=== PATIENT | female | born 1965 | race Caucasian/White ===

== ENCOUNTER 2017-03-23 14:10 | Emergency (ER) | payer BC ==
--- OUTSIDE RECORDS SUMMARY | 2017-03-23 14:18 | XMS REPORT ---
:1965 External Reference #:[id number] Author Organization [employer] Address [address] [address] Phone [phone] Care Team Providers Name Role Phone Reuben Riggs NP Primary Care Physician Unavailable Payers Type Date Identification Numbers Payment Provider Subscriber Commercial Effective: Policy Number: BS [employer]ets Javier Abdul 2011 [id number] PayID: [id number] [address] [address] [place] [address] Problems Date Description Provider Status Onset: 05/14/2014 Chronic pansinusitis Leonardo Willoughby M.D. Active Onset: 05/14/2014 Immunologic Leonardo Willoughby M.D. Active Onset: 05/14/2014 Chronic pain syndrome Leonardo Willoughby M.D. Active Onset: 02/20/2014 Taking medication Zsofia Tomy, [employer] UP OPERATOR Active Onset: 12/07/2011 Medications Nursing Home (Current) Use Leonardo Willoughby M.D. Active Encounter Onset: 12/07/2011 Collagen disease Leonardo Willoughby M.D. Active Social History Type Date Description Comments ETOH Use Denies alcohol use Smoking Patient has never smoked Allergies, Adverse Reactions, Alerts Date Description Reaction Status Severity Comments 06/07/2010 Sulfa active 06/07/2010 Ibuprofen active 12/07/2011 Doxycycline VOMIT active 08/31/2014 Cefdinir Urticaria active Severe 03/03/2015 Penicillins active 03/03/2015 Cephalosporin active Medications Medication Date Status Form Strength Qnty SIG Indications Ordering Provider Guaifenesin-Codein 03/20 Active Solution 100-10mg/ 118ml take 10 R05 Zsofia 5ML milliliters Tomy, by mouth [employer] UP OPERATOR every evening with plenty of water as needed for cough for 7 days as needed Wrist Splint/Left 02/20 Active Misc QS use on left 727.05 Zsofia Medium hand as Tomy, needed. [employer] UP OPERATOR Hydroxychloroquine 10/20 Active Tablets 200mg 180ta Take 1 M32.9 Zsofia Sulfate bs Tablet 2X Tomy, Daily [employer] UP OPERATOR Z79.899 R76.8 Prilosec 06/06/[address] 20mg 90caps 1 po qd Other Ordering Provider Tiazac Active Caps ER 24HR 240mg 30caps 1 po qd Unknown Budesonide Active Suspension 0.25mg 1monthsu bid via Unknown /2ML nebulizer Asmanex 120 Active Aerosol 220mcg 1units 1 inh bid Unknown Metered Doses /Inh Xyzal Active Tablets 5mg 1 by mouth Unknown every day Dymista Active Suspension 137-50 1 spray in Unknown mcg/Ac each t nostril Lisinopril Active Tablets 10mg 1 by mouth Unknown every day Singulair Active Tablets 10mg 1 by mouth Unknown every day Hyoscyamine Active Tablets Sub 0.125m by mouth Unknown Sulfate g qd as needed Clindamycin HCL Active Capsules 300mg 1 tabs by Unknown mouth 3 times a day Folic Acid 09/15/2016 - Hx Tablets 1mg 90tabs 1 by mouth Z7 Zsofia 03/20/2017 every day 9. Tomy, 89 [employer] UP OPERATOR 9 Methotrexate 09/15/2016 - Hx Tablets 2.5mg 48tabs take four R7 Zsofia 03/20/2017 tablets 6. Tomy, once weekly 8 [employer] UP OPERATOR Z79.899 H90.12 Cipro 03/03/2015 - Hx Tablets 500mg 6tabs 1 tab by N39.0 Zsofia 01/11/2016 mouth Tomy, twice a [employer] UP OPERATOR day for 3 days Hydroxychloroquine 08/29/2012 - Hx Tablets 200mg 1 po qd 710.9 Zsofia Sulfate 08/18/2013 Tomy, [employer] UP OPERATOR Nasonex 06/06/2012 - Hx Suspension 50mcg/A 1units 2 sprays Other 05/14/2014 ct to each Ordering nostril Provider twice daily Zantac 06/06/2012 - Hx Tablets 150mg 60tabs 1 po bid Other 02/06/2013 prn Ordering Provider Hydroxychloroquine 06/06/2012 - Hx Tablets 200mg 180tabs 1 tab po 710.9 Zsofia Sulfate 10/20/2013 bid TomyDANNYP Voltaren 06/06/2012 - Hx Gel 1% 1tubes apply to 710.9 Zsofia 08/18/2013 affected Tomy, area bid, [employer] UP OPERATOR prn Hydroxychloroquine 06/07/2010 - Hx Tablets 200mg 90tabs 1 po qd Leonardo Sulfate 02/06/2013 Stella Willoughby Clarinex - Hx Tablets 5mg 90tabs 1 po qd Unknown 05/14/2014 Singulair - Hx Tablets 10mg 28tabs 1 po qd Unknown 12/07/2011 Patanase - Hx Solution 0.6% 1units 2 sprays Unknown 02/06/2013 in each nostril bid Veramyst - Hx Suspension 27.5mcg 1Month 2 sprays Unknown 06/06/2012 /[place] each nostril daily Bactroban Nasal - Hx Ointment 2% 30gm apply to Unknown 09/15/2016 both nostrils twice a day for 14 days Vancomycin HCL - Hx Solution Rec 10gm with neb Unknown 12/07/2011 Pred Forte - Hx Suspension 1% 1 gtt Unknown 02/20/2014 both eyes qd Pataday - Hx Solution 0.2% 2.500ml 1 drop in Unknown 09/15/2016 each eye once daily Immunizations CPT Code Status Date Vaccine Lot # [id number] Given 12/01/2014 Influenza Virus Vaccine, Quadrivalent, Split, [id number] Preservative Free Vital Signs Date Vital Result Comment 03/20/2017 Weight 184.38 lb Heart Rate 108 /min BP Systolic Sitting 146 mmHg BP Diastolic Sitting 82 mmHg Body Temperature 100.7 F Pain Level 1 O2 % BldC Oximetry 97 % 11/27/2016 Weight 185.00 lb Heart Rate 87 /min BP Systolic Sitting 148 mmHg BP Diastolic Sitting 92 mmHg Body Temperature 97.4 F Pain Level 2 hands/knees O2 % BldC Oximetry 98 % 09/15/2016 Height 65 inches 5'5" Weight 190.50 lb Heart Rate 79 /min BP Systolic Sitting 159 mmHg BP Diastolic Sitting 100 mmHg Respiratory Rate 14 /min Pain Level 2 BMI (Body Mass Index) 31.7 kg/m2 07/18/2016 Height 65 inches 5'5" Weight 189.12 lb Heart Rate 84 /min BP Systolic Sitting 144 mmHg BP Diastolic Sitting 96 mmHg Respiratory Rate 14 /min Pain Level 4 BMI (Body Mass Index) 31.5 kg/m2 01/11/2016 Height 65 inches 5'5" Weight 191.00 lb Heart Rate 80 /min BP Systolic Sitting 150 mmHg BP Diastolic Sitting 90 mmHg Pain Level 2 BMI (Body Mass Index) 31.8 kg/m2 07/07/2015 Height 65 inches 5'5" Weight 185.00 lb Heart Rate 72 /min BP Systolic Sitting 124 mmHg BP Diastolic Sitting 70 mmHg Respiratory Rate 14 /min Body Temperature 98.0 F Pain Level 2 BMI (Body Mass Index) 30.8 kg/m2 03/03/2015 Height 65 inches 5'5" Weight 195.00 lb Heart Rate 72 /min BP Systolic Sitting 148 mmHg BP Diastolic Sitting 86 mmHg Respiratory Rate 14 /min Pain Level 3 BMI (Body Mass Index) 32.4 kg/m2 12/01/2014 Height 65 inches 5'5" Weight 193.50 lb Heart Rate 84 /min BP Systolic Sitting 120 mmHg BP Diastolic Sitting 70 mmHg Pain Level 2 BMI (Body Mass Index) 32.2 kg/m2 08/31/2014 Height 65 inches 5'5" Weight 195.00 lb Heart Rate 72 /min BP Systolic Sitting 134 mmHg BP Diastolic Sitting 80 mmHg Pain Level 3 BMI (Body Mass Index) 32.4 kg/m2 05/14/2014 Height 65 inches 5'5" Weight 199.00 lb Heart Rate 78 /min BP Systolic Sitting 120 mmHg BP Diastolic Sitting 80 mmHg Body Temperature 97.9 F Pain Level 5 BMI (Body Mass Index) 33.1 kg/m2 02/20/2014 Height 65 inches 5'5" Weight 196.00 lb Heart Rate 70 /min BP Systolic Sitting 142 mmHg BP Diastolic Sitting 90 mmHg Pain Level 2 BMI (Body Mass Index) 32.6 kg/m2 08/18/2013 Height 65 inches 5'5" Weight 195.00 lb Heart Rate 70 /min BP Systolic Sitting 132 mmHg BP Diastolic Sitting 78 mmHg BMI (Body Mass Index) 32.4 kg/m2 02/06/2013 Height 65 inches 5'5" Weight 190.00 lb Heart Rate 78 /min BP Systolic Sitting 132 mmHg BP Diastolic Sitting 72 mmHg BMI (Body Mass Index) 31.6 kg/m2 08/29/2012 Weight 184.00 lb Heart Rate 77 /min BP Systolic Sitting 130 mmHg BP Diastolic Sitting 80 mmHg 06/06/2012 Height 64 inches 5'4" Weight 182.00 lb Heart Rate 78 /min BP Systolic Sitting 126 mmHg BP Diastolic Sitting 74 mmHg BMI (Body Mass Index) 31.2 kg/m2 12/07/2011 Height 64 inches 5'4" Weight 178.00 lb Heart Rate 78 /min BP Systolic Sitting 130 mmHg BP Diastolic Sitting 71 mmHg BMI (Body Mass Index) 30.6 kg/m2 06/05/2011 Height 64 inches 5'4" Weight 180.00 lb Heart Rate 72 /min BP Systolic Sitting 124 mmHg BP Diastolic Sitting 73 mmHg BMI (Body Mass Index) 30.9 kg/m2 12/06/2010 Height 64 inches 5'4" Weight 182.00 lb Heart Rate 60 /min BP Systolic Sitting 110 mmHg BP Diastolic Sitting 70 mmHg BMI (Body Mass Index) 31.2 kg/m2 06/07/2010 Height 64 inches 5'4" Weight 181.00 lb Heart Rate 78 /min BP Systolic 118 mmHg BP Diastolic 70 mmHg BMI (Body Mass Index) 31.1 kg/m2 Results Test Date Test Result H/L Range Note CBC Auto Diff 01/19/2017 White Blood Count 5.8 10^3/uL 3.5-10.8 Red Blood Count 4.19 10^6/uL 4.0-5.4 Hemoglobin 12.6 g/dL 12.0-16.0 Hematocrit 37 % 35-47 Mean Corpuscular Volume 87 fL 80-97 Mean Corpuscular Hemoglobin 30 pg 27-31 Mean Corpuscular HGB Conc 35 g/dL 31-36 Red Cell Distribution Width 14 % 10.5-15 Platelet Count 382 10^3/uL 150-450 Mean Platelet Volume 7 um3 Low 7.4-10.4 Abs Neutrophils 4.0 10^3/uL 1.5-7.7 Abs Lymphocytes 1.3 10^3/uL 1.0-4.8 Abs Monocytes 0.4 10^3/uL 0-0.8 Abs Eosinophils 0 10^3/uL 0-0.6 Abs Basophils 0.1 10^3/uL 0-0.2 Abs Nucleated RBC 0 10^3/uL Granulocyte % 68.9 % 38-83 Lymphocyte % 22.6 % Low 25-47 Monocyte % 6.8 % 1-9 Eosinophil % 0.8 % 0-6 Basophil % 0.9 % 0-2 Nucleated Red Blood Cells % 0 Comp Metabolic Panel 01/19/2017 Sodium 137 mmol/L 133-145 Potassium 4.0 mmol/L 3.5-5.0 Chloride 106 mmol/L 101-111 Co2 Carbon Dioxide 28 mmol/L 22-32 Anion Gap 3 mmol/L 2-11 Glucose 80 mg/dL 70-100 Blood Urea Nitrogen 12 mg/dL 6-24 Creatinine 0.93 mg/dL 0.51-0.95 BUN/Creatinine Ratio 12.9 8-20 Calcium 8.9 mg/dL 8.6-10.3 Total Protein 6.2 g/dL Low 6.4-8.9 Albumin 4.1 g/dL 3.2-5.2 Globulin 2.1 g/dL 2-4 Albumin/Globulin Ratio 2.0 1-3 Total Bilirubin 0.50 mg/dL 0.2-1.0 Alkaline Phosphatase 52 U/L 34-104 Alt 10 U/L 7-52 Ast 12 U/L Low 13-39 Egfr Non- 63.1 >60 Egfr 81.1 >60 1 Laboratory test finding 01/19/2017 C Reactive Protein 1.02 mg/L < 5.00 2 Erythrocyte Sed Rate 15 mm/Hr 0-30 Urinalysis Profile 01/19/2017 Urine Color Yellow Urine Appearance Clear Urine Specific [place] 1.020 1.010-1.030 Urine pH 6.0 5-9 Urine Urobilinogen Negative Negative Urine Ketones Negative Negative Urine Protein Negative Negative Urine Leukocytes Negative Negative Urine Blood Negative Negative Urine Nitrite Negative Negative Urine Bilirubin Negative Negative Urine Glucose Negative Negative CBC Auto Diff 11/20/2016 White Blood Count 4.5 10^3/uL 3.5-10.8 Red Blood Count 4.53 10^6/uL 4.0-5.4 Hemoglobin 13.4 g/dL 12.0-16.0 Hematocrit 39 % 35-47 Mean Corpuscular Volume 85 fL 80-97 Mean Corpuscular Hemoglobin 30 pg 27-31 Mean Corpuscular HGB Conc 35 g/dL 31-36 Red Cell Distribution Width 13 % 10.5-15 Platelet Count 320 10^3/uL 150-450 Mean Platelet Volume 7 um3 Low 7.4-10.4 Abs Neutrophils 2.7 10^3/uL 1.5-7.7 Abs Lymphocytes 1.4 10^3/uL 1.0-4.8 Abs Monocytes 0.3 10^3/uL 0-0.8 Abs Eosinophils 0.1 10^3/uL 0-0.6 Abs Basophils 0.1 10^3/uL 0-0.2 Abs Nucleated RBC 0 10^3/uL Granulocyte % 60.1 % 38-83 Lymphocyte % 30.6 % 25-47 Monocyte % 6.7 % 1-9 Eosinophil % 1.4 % 0-6 Basophil % 1.2 % 0-2 Nucleated Red Blood Cells % 0 Comp Metabolic Panel 11/20/2016 Sodium 139 mmol/L 133-145 Potassium 4.1 mmol/L 3.5-5.0 Chloride 108 mmol/L 101-111 Co2 Carbon Dioxide 24 mmol/L 22-32 Anion Gap 7 mmol/L 2-11 Glucose 96 mg/dL 70-100 Blood Urea Nitrogen 7 mg/dL 6-24 Creatinine 0.85 mg/dL 0.51-0.95 BUN/Creatinine Ratio 8.2 8-20 Calcium 8.8 mg/dL 8.6-10.3 Total Protein 6.5 g/dL 6.4-8.9 Albumin 4.2 g/dL 3.2-5.2 Globulin 2.3 g/dL 2-4 Albumin/Globulin Ratio 1.8 1-3 Total Bilirubin 0.60 mg/dL 0.2-1.0 Alkaline Phosphatase 57 U/L 34-104 Alt 9 U/L 7-52 Ast 10 U/L Low 13-39 Egfr Non- 70.0 >60 Egfr 90.0 >60 3 Laboratory test finding 11/20/2016 C Reactive Protein 3.19 mg/L < 5.00 4 Erythrocyte Sed Rate 12 mm/Hr 0-30 5 Nuclear AB (Timothy) By [facility] 11/20/2016 Nuclear Ab (Timothy) by [facility], Positive 1:160 6 Igg IgG Timothy Titer: 1:160 Timothy Pattern: Dense Fine Speck <SEE NOTE> 7 CBC Auto Diff 09/05/2016 White Blood Count 5.4 10^3/uL 3.5-10.8 Red Blood Count 4.71 10^6/uL 4.0-5.4 Hemoglobin 13.8 g/dL 12.0-16.0 Hematocrit 42 % 35-47 Mean Corpuscular Volume 88 fL 80-97 Mean Corpuscular Hemoglobin 29 pg 27-31 Mean Corpuscular HGB Conc 33 g/dL 31-36 Red Cell Distribution Width 13 % 10.5-15 Platelet Count 294 10^3/uL 150-450 Mean Platelet Volume 8 um3 7.4-10.4 Abs Neutrophils 3.6 10^3/uL 1.5-7.7 Abs Lymphocytes 1.2 10^3/uL 1.0-4.8 Abs Monocytes 0.4 10^3/uL 0-0.8 Abs Eosinophils 0.1 10^3/uL 0-0.6 Abs Basophils 0 10^3/uL 0-0.2 Abs Nucleated RBC 0 10^3/uL Granulocyte % 66.8 % 38-83 Lymphocyte % 21.8 % Low 25-47 Monocyte % 7.9 % 1-9 Eosinophil % 2.6 % 0-6 Basophil % 0.9 % 0-2 Nucleated Red Blood Cells % 0.1 Comp Metabolic Panel 09/05/2016 Sodium 140 mmol/L 133-145 Potassium 3.9 mmol/L 3.5-5.0 Chloride 107 mmol/L 101-111 Co2 Carbon Dioxide 26 mmol/L 22-32 Anion Gap 7 mmol/L 2-11 Glucose 72 mg/dL 70-100 Blood Urea Nitrogen 7 mg/dL 6-24 Creatinine 0.80 mg/dL 0.51-0.95 BUN/Creatinine Ratio 8.8 8-20 Calcium 8.7 mg/dL 8.6-10.3 Total Protein 6.4 g/dL 6.4-8.9 Albumin 3.9 g/dL 3.2-5.2 Globulin 2.5 g/dL 2-4 Albumin/Globulin Ratio 1.6 1-3 Total Bilirubin 0.70 mg/dL 0.2-1.0 Alkaline Phosphatase 69 U/L 34-104 Alt 11 U/L 7-52 Ast 13 U/L 13-39 Egfr Non- 75.0 >60 Egfr 96.5 >60 8 Laboratory test finding 09/05/2016 Erythrocyte Sed Rate 21 mm/Hr 0-30 C Reactive Protein 3.46 mg/L < 5.00 9 Urinalysis Profile 09/05/2016 Urine Color Yellow Urine Appearance Clear Urine Specific [place] 1.014 1.010-1.030 Urine pH 5.0 5-9 Urine Urobilinogen Negative Negative Urine Ketones Negative Negative Urine Protein Negative Negative Urine Leukocytes Negative Negative Urine Blood Negative Negative Urine Nitrite Negative Negative Urine Bilirubin Negative Negative Urine Glucose Negative Negative Nuclear AB (Timothy) By [facility] 09/05/2016 Nuclear Ab (Timothy) by [facility], Positive 1:320 10 Igg IgG Timothy Titer: 1:320 Timothy Pattern: Dense Fine Speck <SEE NOTE> 11 CBC Auto Diff 07/06/2016 White Blood Count 5.3 10^3/uL 3.5-10.8 Red Blood Count 4.75 10^6/uL 4.0-5.4 Hemoglobin 13.6 g/dL 12.0-16.0 Hematocrit 40 % 35-47 Mean Corpuscular Volume 85 fL 80-97 Mean Corpuscular Hemoglobin 29 pg 27-31 Mean Corpuscular HGB Conc 34 g/dL 31-36 Red Cell Distribution Width 13 % 10.5-15 Platelet Count 317 10^3/uL 150-450 Mean Platelet Volume 8 um3 7.4-10.4 Abs Neutrophils 3.1 10^3/uL 1.5-7.7 Abs Lymphocytes 1.6 10^3/uL 1.0-4.8 Abs Monocytes 0.4 10^3/uL 0-0.8 Abs Eosinophils 0.1 10^3/uL 0-0.6 Abs Basophils 0.1 10^3/uL 0-0.2 Abs Nucleated RBC 0.04 10^3/uL Granulocyte % 58.6 % 38-83 Lymphocyte % 31.1 % 25-47 Monocyte % 6.9 % 1-9 Eosinophil % 2.1 % 0-6 Basophil % 1.3 % 0-2 Nucleated Red Blood Cells % 0.8 Comp Metabolic Panel 07/06/2016 Sodium 135 mmol/L 133-145 Chloride 104 mmol/L 101-111 Co2 Carbon Dioxide 25 mmol/L 22-32 Glucose 84 mg/dL 70-100 Blood Urea Nitrogen 13 mg/dL 6-24 Creatinine 0.94 mg/dL 0.51-0.95 BUN/Creatinine Ratio 13.8 8-20 Total Protein 6.5 g/dL 6.4-8.9 Albumin 4.2 g/dL 3.2-5.2 Globulin 2.3 g/dL 2-4 Albumin/Globulin Ratio 1.8 1-3 Total Bilirubin 0.60 mg/dL 0.2-1.0 Alkaline Phosphatase 56 U/L 34-104 Alt 11 U/L 7-52 Egfr Non- 62.3 >60 Egfr 80.1 >60 12 Potassium 4.5 mmol/L 3.5-5.0 13 Anion Gap 6 mmol/L 2-11 Ast 20 U/L 13-39 14 Calcium 9.4 mg/dL 8.6-10.3 Laboratory test finding 07/06/2016 C Reactive Protein 1.45 mg/L < 5.00 15 Aicha Igg AB Reflex 07/06/2016 SS-A/Ro Antibody <0.2 U 16 SS-B/La Antibody <0.2 U 17 Sm (Ham) IgG Antibody <0.2 U 18 U1-nRNP Antibody 0.5 U 19 Scl-70 (Scleroderma) Antibody <0.2 U 20 Judith-1 Antibody <0.2 U 21 Urinalysis Profile 07/06/2016 Urine Color Yellow Urine Appearance Clear Urine Specific [place] 1.020 1.010-1.030 Urine pH 7.0 5-9 Urine Urobilinogen Negative Negative Urine Ketones Negative Negative Urine Protein Negative Negative Urine Leukocytes Trace Negative Urine Blood Negative Negative * * Negative 22 Urine Nitrite Negative Negative Urine Bilirubin Negative Negative Urine Glucose Negative Negative Urine White Blood Cell Trace(0-5/hpf) Absent Urine Red Blood Cell Absent Absent Urine Bacteria Absent Absent Urine Squamous Epithelial Cell Present Absent Urine Culture And 07/06/2016 Urine Culture SEE RESULT BELOW 23 Sensitivities CBC Auto Diff 01/05/2016 White Blood Count 5.4 10^3/uL 3.5-10.8 Red Blood Count 4.63 10^6/uL 4.0-5.4 Hemoglobin 13.5 g/dL 12.0-16.0 Hematocrit 40 % 35-47 Mean Corpuscular Volume 86 fL 80-97 Mean Corpuscular Hemoglobin 29 pg 27-31 Mean Corpuscular HGB Conc 34 g/dL 31-36 Red Cell Distribution Width 13 % 10.5-15 Platelet Count 322 10^3/uL 150-450 Mean Platelet Volume 8 um3 7.4-10.4 Abs Neutrophils 2.9 10^3/uL 1.5-7.7 Abs Lymphocytes 1.9 10^3/uL 1.0-4.8 Abs Monocytes 0.4 10^3/uL 0-0.8 Abs Eosinophils 0.1 10^3/uL 0-0.6 Abs Basophils 0.1 10^3/uL 0-0.2 Abs Nucleated RBC 0 10^3/uL Granulocyte % 54.5 % 38-83 Lymphocyte % 35.6 % 25-47 Monocyte % 6.6 % 1-9 Eosinophil % 1.8 % 0-6 Basophil % 1.5 % 0-2 Nucleated Red Blood Cells % 0 Comp Metabolic Panel 01/05/2016 Sodium 139 mmol/L 133-145 Potassium 3.6 mmol/L 3.5-5.0 Chloride 105 mmol/L 101-111 Co2 Carbon Dioxide 27 mmol/L 22-32 Anion Gap 7 mmol/L 2-11 Glucose 85 mg/dL 70-100 Blood Urea Nitrogen 8 mg/dL 6-24 Creatinine 0.91 mg/dL 0.51-0.95 BUN/Creatinine Ratio 8.8 8-20 Calcium 9.1 mg/dL 8.6-10.3 Total Protein 6.5 g/dL 6.4-8.9 Albumin 4.0 g/dL 3.2-5.2 Globulin 2.5 g/dL 2-4 Albumin/Globulin Ratio 1.6 1-3 Total Bilirubin 0.40 mg/dL 0.2-1.0 Alkaline Phosphatase 64 U/L 34-104 Alt 12 U/L 7-52 Ast 16 U/L 13-39 Egfr Non- 64.9 >60 Egfr 83.5 >60 24 Laboratory test finding 01/05/2016 C Reactive Protein 1.99 mg/L < 5.00 25 Erythrocyte Sed Rate 11 mm/Hr 0-30 Angiotensin Converting Enzyme 11 U/L 8 - 53 26 Urinalysis Profile 01/05/2016 Urine Color Yellow Urine Appearance Clear Urine Specific [place] 1.014 1.010-1.030 Urine pH 6.0 5-9 Urine Urobilinogen Negative Negative Urine Ketones Negative Negative Urine Protein Negative Negative Urine Leukocytes Negative Negative Urine Blood 2+ Negative Urine Nitrite Negative Negative Urine Bilirubin Negative Negative Urine Glucose Negative Negative Urine White Blood Cell Trace(0-5/hpf) Absent Urine Red Blood Cell 1+(3-5/hpf) Absent Urine Bacteria Absent Absent Urine Squamous Epithelial Cell Present Absent CBC Auto Diff 07/06/2015 White Blood Count 4.2 10^3/uL 3.5-10.8 Red Blood Count 4.68 10^6/uL 4.0-5.4 Hemoglobin 13.2 g/dL 12.0-16.0 Hematocrit 41 % 35-47 Mean Corpuscular Volume 87 fL 80-97 Mean Corpuscular Hemoglobin 28 pg 27-31 Mean Corpuscular HGB Conc 32 g/dL 31-36 Red Cell Distribution Width 13 % 10.5-15 Platelet Count 299 10^3/uL 150-450 Mean Platelet Volume 8 um3 7.4-10.4 Abs Neutrophils 2.3 10^3/uL 1.5-7.7 Abs Lymphocytes 1.4 10^3/uL 1.0-4.8 Abs Monocytes 0.4 10^3/uL 0-0.8 Abs Eosinophils 0 10^3/uL 0-0.6 Abs Basophils 0.1 10^3/uL 0-0.2 Abs Nucleated RBC 0.01 10^3/uL Granulocyte % 55.9 % 38-83 Lymphocyte % 32.4 % 25-47 Monocyte % 9.4 % High 1-9 Eosinophil % 0.5 % 0-6 Basophil % 1.8 % 0-2 Nucleated Red Blood Cells % 0.2 Comp Metabolic Panel 07/06/2015 Sodium 136 mmol/L 133-145 Chloride 105 mmol/L 101-111 Co2 Carbon Dioxide 25 mmol/L 22-32 Glucose 89 mg/dL 70-100 Blood Urea Nitrogen 9 mg/dL 6-24 Creatinine 0.80 mg/dL 0.51-0.95 BUN/Creatinine Ratio 11.3 8-20 Calcium 8.9 mg/dL 8.6-10.3 Total Protein 6.7 g/dL 6.4-8.9 Albumin 4.3 g/dL 3.2-5.2 Globulin 2.4 g/dL 2-4 Albumin/Globulin Ratio 1.8 1-3 Total Bilirubin 0.50 mg/dL 0.2-1.0 Alkaline Phosphatase 56 U/L 34-104 Alt 12 U/L 7-52 Egfr Non- 75.3 >60 Egfr 96.9 >60 27 Potassium 4.4 mmol/L 3.5-5.0 Anion Gap 6 mmol/L 2-11 Ast 17 U/L 13-39 Laboratory test finding 07/06/2015 C Reactive Protein 3.40 mg/L < 5.00 28 Erythrocyte Sed Rate 13 mm/Hr 0-30 Urinalysis Profile 07/06/2015 Urine Color Yellow Urine Appearance Clear Urine Specific [place] 1.015 1.010-1.030 Urine pH 7.0 5-9 Urine Urobilinogen Negative Negative Urine Ketones Negative Negative Urine Protein Negative Negative Urine Leukocytes Negative Negative Urine Blood Negative Negative Urine Nitrite Negative Negative Urine Bilirubin Negative Negative Urine Glucose Negative Negative Laboratory test finding 07/06/2015 Anti Nuclear Antibody 0.5 U 29 Laboratory test finding 02/25/2015 Timothy (Antinuclear Negative Negative Antibodies) CBC Auto Diff 02/25/2015 White Blood Count 5.8 10^3/uL 3.5-10.8 Red Blood Count 4.62 10^6/uL 4.0-5.4 Hemoglobin 13.1 g/dL 12.0-16.0 Hematocrit 40 % 35-47 Mean Corpuscular Volume 87 fL 80-97 Mean Corpuscular Hemoglobin 28 pg 27-31 Mean Corpuscular HGB Conc 33 g/dL 31-36 Red Cell Distribution Width 13 % 10.5-15 Platelet Count 351 10^3/uL 150-450 Mean Platelet Volume 8 um3 7.4-10.4 Abs Neutrophils 3.6 10^3/uL 1.5-7.7 Abs Lymphocytes 1.7 10^3/uL 1.0-4.8 Abs Monocytes 0.4 10^3/uL 0-0.8 Abs Eosinophils 0.1 10^3/uL 0-0.6 Abs Basophils 0 10^3/uL 0-0.2 Abs Nucleated RBC 0.01 10^3/uL Granulocyte % 62.2 % 38-83 Lymphocyte % 28.5 % 25-47 Monocyte % 7.1 % 1-9 Eosinophil % 1.4 % 0-6 Basophil % 0.8 % 0-2 Nucleated Red Blood Cells % 0.1 Comp Metabolic Panel 02/25/2015 Sodium 138 mmol/L 133-145 Potassium 3.9 mmol/L 3.5-5.0 Chloride 105 mmol/L 101-111 Co2 Carbon Dioxide 27 mmol/L 22-32 Anion Gap 6 mmol/L 2-11 Glucose 93 mg/dL 70-100 Blood Urea Nitrogen 11 mg/dL 6-24 Creatinine 0.83 mg/dL 0.51-0.95 BUN/Creatinine Ratio 13.3 8-20 Calcium 8.9 mg/dL 8.6-10.3 Total Protein 6.6 g/dL 6.4-8.9 Albumin 4.5 g/dL 3.2-5.2 Globulin 2.1 g/dL 2-4 Albumin/Globulin Ratio 2.1 1-3 Total Bilirubin 0.40 mg/dL 0.2-1.0 Alkaline Phosphatase 62 U/L 34-104 Alt 13 U/L 7-52 Ast 17 U/L 13-39 Egfr Non- 72.2 >60 Egfr 92.8 >60 30 Laboratory test finding 02/25/2015 C Reactive Protein 2.45 mg/L < 5.00 31 Erythrocyte Sed Rate 12 mm/Hr 0-30 Urinalysis Profile 02/25/2015 Urine Color Yellow Urine Appearance Cloudy Urine Specific [place] 1.016 1.010-1.030 Urine pH 7.0 5-9 Urine Urobilinogen Negative Negative Urine Ketones Negative Negative Urine Protein Negative Negative Urine Leukocytes Trace Negative Urine Blood Negative Negative * * Negative 32 Urine Nitrite Negative Negative Urine Bilirubin Negative Negative Urine Glucose Negative Negative Urine White Blood Cell Absent Absent Urine Red Blood Cell 1+(3-5/hpf) Absent Urine Bacteria Absent Absent Urine Squamous Epithelial Cell Present Absent Laboratory test 02/25/2015 Urine Culture And SEE RESULT BELOW 33 finding Sensitivities CBC Auto Diff 11/24/2014 White Blood Count 5.6 10^3/uL 4.8-10.8 Red Blood Count 4.46 10^6/uL 4.0-5.4 Hemoglobin 13.0 g/dL 12.0-16.0 Hematocrit 39 % 35-47 Mean Corpuscular Volume 87 fL 80-97 Mean Corpuscular Hemoglobin 29 pg 27-31 Mean Corpuscular HGB Conc 33 g/dL 31-36 Red Cell Distribution Width 13 % 10.5-15 Platelet Count 353 10^3/uL 150-450 Mean Platelet Volume 7 um3 Low 7.4-10.4 Abs Neutrophils 3.4 10^3/uL 1.5-7.7 Abs Lymphocytes 1.6 10^3/uL 1.0-4.8 Abs Monocytes 0.3 10^3/uL 0-0.8 Abs Eosinophils 0.1 10^3/uL 0-0.6 Abs Basophils 0.1 10^3/uL 0-0.2 Abs Nucleated RBC 0.04 10^3/uL Granulocyte % 61.1 % 38-83 Lymphocyte % 29.2 % 25-47 Monocyte % 5.8 % 1-9 Eosinophil % 2.0 % 0-6 Basophil % 1.9 % 0-2 Nucleated Red Blood Cells % 0.8 Comp Metabolic Panel 11/24/2014 Sodium 140 mmol/L 133-145 Potassium 4.0 mmol/L 3.5-5.0 Chloride 106 mmol/L 101-111 Co2 Carbon Dioxide 29 mmol/L 22-32 Anion Gap 5 mmol/L 2-11 Glucose 77 mg/dL 70-100 Blood Urea Nitrogen 10 mg/dL 6-24 Creatinine 0.81 mg/dL 0.51-0.95 BUN/Creatinine Ratio 12.3 8-20 Calcium 9.0 mg/dL 8.6-10.3 Total Protein 6.0 g/dL Low 6.4-8.9 Albumin 4.0 g/dL 3.2-5.2 Globulin 2.0 g/dL 2-4 Albumin/Globulin Ratio 2.0 1-3 Total Bilirubin 0.40 mg/dL 0.2-1.0 Alkaline Phosphatase 61 U/L 34-104 Alt 10 U/L 7-52 Ast 11 U/L Low 13-39 Egfr Non- 74.5 >60 Egfr 95.9 >60 34 Laboratory test finding 11/24/2014 C Reactive Protein 4.44 mg/L < 5.00 35 Erythrocyte Sed Rate 13 mm/Hr 0-30 Timothy (Antinuclear Antibodies) Negative Negative CBC Auto Diff 08/28/2014 White Blood Count 5.2 10^3/uL 4.8-10.8 Red Blood Count 4.63 10^6/uL 4.0-5.4 Hemoglobin 13.5 g/dL 12.0-16.0 Hematocrit 40 % 35-47 Mean Corpuscular Volume 86 fL 80-97 Mean Corpuscular Hemoglobin 29 pg 27-31 Mean Corpuscular HGB Conc 34 g/dL 31-36 Red Cell Distribution Width 13 % 10.5-15 Platelet Count 300 10^3/uL 150-450 Mean Platelet Volume 7 um3 Low 7.4-10.4 Abs Neutrophils 3.6 10^3/uL 1.5-7.7 Abs Lymphocytes 1.1 10^3/uL 1.0-4.8 Abs Monocytes 0.4 10^3/uL 0-0.8 Abs Eosinophils 0.1 10^3/uL 0-0.6 Abs Basophils 0.1 10^3/uL 0-0.2 Abs Nucleated RBC 0.01 10^3/uL Granulocyte % 69.2 % 38-83 Lymphocyte % 20.3 % Low 25-47 Monocyte % 7.0 % 1-9 Eosinophil % 2.5 % 0-6 Basophil % 1.0 % 0-2 Nucleated Red Blood Cells % 0.1 Comp Metabolic Panel 08/28/2014 Sodium 137 mmol/L 133-145 Potassium 4.0 mmol/L 3.5-5.0 Chloride 107 mmol/L 101-111 Co2 Carbon Dioxide 24 mmol/L 22-32 Anion Gap 6 mmol/L 2-11 Glucose 84 mg/dL 70-100 Blood Urea Nitrogen 8 mg/dL 6-24 Creatinine 0.71 mg/dL 0.51-0.95 BUN/Creatinine Ratio 11.3 8-20 Calcium 9.0 mg/dL 8.6-10.3 Total Protein 6.3 g/dL Low 6.4-8.9 Albumin 4.1 g/dL 3.2-5.2 Globulin 2.2 g/dL 2-4 Albumin/Globulin Ratio 1.9 1-3 Total Bilirubin 0.50 mg/dL 0.2-1.0 Alkaline Phosphatase 71 U/L 34-104 Alt 11 U/L 7-52 Ast 12 U/L Low 13-39 Egfr Non- 86.8 >60 Egfr 111.6 >60 36 Laboratory test finding 08/28/2014 Erythrocyte Sed Rate 18 mm/Hr 0-30 C Reactive Protein 6.35 mg/L High < 5.00 37 Timothy (Anti-Nuclear AB) Screen Negative Negative Comp Metabolic Panel 05/13/2014 Sodium 136 mmol/L 133-145 Potassium 4.4 mmol/L 3.5-5.0 Chloride 103 mmol/L 101-111 Co2 Carbon Dioxide 28 mmol/L 22-32 Anion Gap 5 mmol/L 2-11 Glucose 87 mg/dL 70-100 Blood Urea Nitrogen 18 mg/dL 6-24 Creatinine 0.89 mg/dL 0.51-0.95 BUN/Creatinine Ratio 20.2 High 8-20 Calcium 8.8 mg/dL 8.6-10.3 Total Protein 6.2 g/dL Low 6.4-8.9 Albumin 4.1 g/dL 3.2-5.2 Globulin 2.1 g/dL 2-4 Albumin/Globulin Ratio 2.0 1-3 Total Bilirubin 0.60 mg/dL 0.2-1.0 Alkaline Phosphatase 61 U/L 34-104 Alt 17 U/L 7-52 Ast 11 U/L Low 13-39 Egfr Non- 66.9 >60 Egfr 86.0 >60 38 Laboratory test finding 05/13/2014 C Reactive Protein 4.64 mg/L < 5.00 39 CBC Auto Diff 05/13/2014 White Blood Count 9.0 10^3/uL 4.8-10.8 Red Blood Count 4.47 10^6/uL 4.0-5.4 Hemoglobin 13.6 g/dL 12.0-16.0 Hematocrit 39 % 35-47 Mean Corpuscular Volume 88 fL 80-97 Mean Corpuscular Hemoglobin 30 pg 27-31 Mean Corpuscular HGB Conc 35 g/dL 31-36 Red Cell Distribution Width 14 % 10.5-15 Platelet Count 338 10^3/uL 150-450 Mean Platelet Volume 7 um3 Low 7.4-10.4 Abs Neutrophils 5.6 10^3/uL 1.5-7.7 Abs Lymphocytes 2.6 10^3/uL 1.0-4.8 Abs Monocytes 0.6 10^3/uL 0-0.8 Abs Eosinophils 0.1 10^3/uL 0-0.6 Abs Basophils 0.1 10^3/uL 0-0.2 Abs Nucleated RBC 0.01 10^3/uL Granulocyte % 62.2 % 38-83 Lymphocyte % 28.7 % 25-47 Monocyte % 6.8 % 1-9 Eosinophil % 1.6 % 0-6 Basophil % 0.7 % 0-2 Nucleated Red Blood Cells % 0.2 Laboratory test finding 05/13/2014 Erythrocyte Sed Rate 10 mm/Hr 0-30 Timothy (Anti-Nuclear AB) Screen Negative Negative CBC Auto Diff 02/14/2014 White Blood Count 4.3 10^3/uL Low 4.8-10.8 Red Blood Count 4.58 10^6/uL 4.0-5.4 Hemoglobin 13.5 g/dL 12.0-16.0 Hematocrit 40 % 35-47 Mean Corpuscular Volume 87 fL 80-97 Mean Corpuscular Hemoglobin 29 pg 27-31 Mean Corpuscular HGB Conc 34 g/dL 31-36 Red Cell Distribution Width 13 % 10.5-15 Platelet Count 303 10^3/uL 150-450 Mean Platelet Volume 7 um3 Low 7.4-10.4 Abs Neutrophils 2.7 10^3/uL 1.5-7.7 Abs Lymphocytes 1.1 10^3/uL 1.0-4.8 Abs Monocytes 0.3 10^3/uL 0-0.8 Abs Eosinophils 0.1 10^3/uL 0-0.6 Abs Basophils 0.1 10^3/uL 0-0.2 Abs Nucleated RBC 0 10^3/uL Granulocyte % 61.9 % 38-83 Lymphocyte % 25.8 % 25-47 Monocyte % 7.9 % 1-9 Eosinophil % 3.0 % 0-6 Basophil % 1.4 % 0-2 Nucleated Red Blood Cells % 0 Comp Metabolic Panel 02/14/2014 Sodium 140 mmol/L 133-145 Potassium 3.9 mmol/L 3.5-5.0 Chloride 110 mmol/L 101-111 Co2 Carbon Dioxide 26 mmol/L 22-32 Anion Gap 4 mmol/L 2-11 Glucose 93 mg/dL 70-100 Blood Urea Nitrogen 10 mg/dL 6-24 Creatinine 0.74 mg/dL 0.51-0.95 BUN/Creatinine Ratio 13.5 8-20 Calcium 8.7 mg/dL 8.6-10.3 Total Protein 6.4 g/dL 6.4-8.9 Albumin 3.9 g/dL 3.2-5.2 Globulin 2.5 g/dL 2-4 Albumin/Globulin Ratio 1.6 1-3 Total Bilirubin 0.50 mg/dL 0.2-1.0 Alkaline Phosphatase 59 U/L 34-104 Alt 9 U/L 7-52 Ast 11 U/L Low 13-39 Egfr Non- 82.7 >60 Egfr 106.4 >60 40 Laboratory test finding 02/14/2014 Timothy (Anti-Nuclear AB) Negative Negative Screen Erythrocyte Sed Rate 15 mm/Hr 0-30 C Reactive Protein 1.72 mg/L < 5.00 41 CBC With Manual Diff 11/07/2013 White Blood Count 5.6 10^3/uL 4.8-10.8 Red Blood Count 4.66 10^6/uL 4.0-5.4 Hemoglobin 13.9 g/dL 12.0-16.0 Hematocrit 40 % 35-47 Mean Corpuscular Volume 85 fL 80-97 Mean Corpuscular Hemoglobin 30 pg 27-31 Mean Corpuscular HGB Conc 35 g/dL 31-36 Red Cell Distribution Width 13 % 10.5-15 Platelet Count 330 10^3/uL 150-450 Mean Platelet Volume 7 um3 Low 7.4-10.4 Abs Neutrophils 3.4 10^3/uL 1.5-7.7 Abs Lymphocytes 1.7 10^3/uL 1.0-4.8 Abs Monocytes 0.5 10^3/uL 0-0.8 Abs Eosinophils 0.1 10^3/uL 0-0.6 Abs Basophils 0.1 10^3/uL 0-0.2 Abs Nucleated RBC 0 10^3/uL Neutrophil % 53 % 38-83 Lymphocytes % 30 % 25-47 Monocytes % 14 % High 0-13 Eosinophils % 2 % 0-6 Reactive Lymph % 1 % 0-6 RBC Morphology Normal Normal Comp Metabolic Panel 11/07/2013 Sodium 139 mmol/L 133-145 Potassium 3.7 mmol/L 3.7-5.6 Chloride 106 mmol/L 101-111 Co2 Carbon Dioxide 28 mmol/L 22-32 Anion Gap 5 mmol/L 2-11 Glucose 83 mg/dL 70-100 Blood Urea Nitrogen 12 mg/dL 6-24 Creatinine 0.80 mg/dL 0.51-0.95 BUN/Creatinine Ratio 15.0 8-20 Calcium 9.1 mg/dL 8.6-10.3 Total Protein 6.8 g/dL 6.4-8.9 Albumin 4.4 g/dL 3.2-5.2 Globulin 2.4 g/dL 2-4 Albumin/Globulin Ratio 1.8 1-3 Total Bilirubin 0.50 mg/dL 0.2-1.0 Alkaline Phosphatase 63 U/L 34-104 Alt 10 U/L 7-52 Ast 14 U/L 13-39 Egfr Non- 75.9 >60 Egfr 97.6 >60 42 Laboratory test finding 11/07/2013 C Reactive Protein 1.99 mg/L < 5.00 43 Erythrocyte Sed Rate 17 mm/Hr 0-30 Timothy (Anti-Nuclear AB) Screen Negative Negative CBC With Manual Diff 08/14/2013 White Blood Count 6.0 10^3/uL 4.8-10.8 Red Blood Count 4.49 10^6/uL 4.0-5.4 Hemoglobin 13.3 g/dL 12.0-16.0 Hematocrit 39 % 35-47 Mean Corpuscular Volume 86 fL 80-97 Mean Corpuscular Hemoglobin 30 pg 27-31 Mean Corpuscular HGB Conc 35 g/dL 31-36 Red Cell Distribution Width 13 % 10.5-15 Platelet Count 313 10^3/uL 150-450 Mean Platelet Volume 7 um3 Low 7.4-10.4 Abs Neutrophils 3.7 10^3/uL 1.5-7.7 Abs Lymphocytes 1.6 10^3/uL 1.0-4.8 Abs Monocytes 0.5 10^3/uL 0-0.8 Abs Eosinophils 0.1 10^3/uL 0-0.6 Abs Basophils 0.1 10^3/uL 0-0.2 Abs Nucleated RBC 0.01 10^3/uL Neutrophil % 64 % 38-83 Lymphocytes % 28 % 25-47 Monocytes % 3 % 0-13 Eosinophils % 2 % 0-6 Basophil % 2 % 0-2 Reactive Lymph % 1 % 0-6 RBC Morphology Normal Normal Laboratory test finding 08/14/2013 C Reactive Protein 2.72 mg/L < 5.00 44 Erythrocyte Sed Rate 15 mm/Hr 0-30 Comp Metabolic Panel 08/14/2013 Sodium 137 mmol/L 133-145 Potassium 4.0 mmol/L 3.7-5.6 Chloride 106 mmol/L 101-111 Co2 Carbon Dioxide 25 mmol/L 22-32 Anion Gap 6 mmol/L 2-11 Glucose 93 mg/dL 70-100 Blood Urea Nitrogen 9 mg/dL 6-24 Creatinine 0.96 mg/dL High 0.51-0.95 BUN/Creatinine Ratio 9.4 8-20 Calcium 9.0 mg/dL 8.6-10.3 Total Protein 6.8 g/dL 6.4-8.9 Albumin 4.2 g/dL 3.2-5.2 Globulin 2.6 g/dL 2-4 Albumin/Globulin Ratio 1.6 1-3 Total Bilirubin 0.50 mg/dL 0.2-1.0 Alkaline Phosphatase 68 U/L 34-104 Alt 14 U/L 7-52 Ast 14 U/L 13-39 Egfr Non- 61.5 >60 Egfr 79.1 >60 45 Laboratory test 08/14/2013 Timothy (Anti-Nuclear AB) Reflexed to FA Negative finding Screen Timothy Hep-2 08/14/2013 Timothy Pattern Homogeneous Negative Timothy Titer 1:640 <1:80 Timothy Reviewed By MD Micheal Marina <SEE NOTE> 46 CBC With Manual Diff 02/03/2013 White Blood Count 4.5 10^3/uL Low 4.8- 10.8 Red Blood Count 4.64 10^6/uL 4.0-5.4 Hemoglobin 13.5 g/dL 12.0-16.0 Hematocrit 40 % 35-47 Mean Corpuscular Volume 86 fL 80-97 Mean Corpuscular Hemoglobin 29 pg 27-31 Mean Corpuscular HGB Conc 34 g/dL 31-36 Red Cell Distribution Width 13 % 10.5-15 Platelet Count 310 10^3/uL 150-450 Mean Platelet Volume 8 um3 7.4-10.4 Abs Neutrophils 2.5 10^3/uL 1.5-7.7 Abs Lymphocytes 1.3 10^3/uL 1.0-4.8 Abs Monocytes 0.4 10^3/uL 0-0.8 Abs Eosinophils 0.2 10^3/uL 0-0.6 Abs Basophils 0 10^3/uL 0-0.2 Abs Nucleated RBC 0 10^3/uL Neutrophil % 52 % 38-83 Lymphocytes % 37 % 25-47 Monocytes % 7 % 0-13 Eosinophils % 4 % 0-6 RBC Morphology Normal Normal Laboratory test 02/03/2013 C Reactive Protein < 0.5 mg/dL Less than 0.5 finding Comp Metabolic Panel 02/03/2013 Sodium 137 mmol/L 133-145 Potassium 4.5 mmol/L 3.5-5.0 Chloride 103 mmol/L 101-111 Co2 Carbon Dioxide 28.0 mmol/L 22-32 Anion Gap 6.0 mmol/L 2-11 Glucose 99 mg/dL 70-100 Blood Urea Nitrogen 8 mg/dL 6-24 Creatinine 0.80 mg/dL 0.50-1.40 BUN/Creatinine Ratio 10.0 8-20 Calcium 9.7 mg/dL 8.1-9.9 Total Protein 6.2 g/dL 6.2-8.1 Albumin 3.9 g/dL 3.6-5.4 Globulin 2.3 g/dL 2-4 Albumin/Globulin Ratio 1.7 1-3 Total Bilirubin 0.6 mg/dL 0.4-1.5 Alkaline Phosphatase 70 U/L 30-110 Alt 15 U/L 14-54 Ast 21 U/L 12-42 Egfr Non- 76.2 >60 Egfr 98.0 >60 47 Laboratory test finding 02/03/2013 Erythrocyte Sed Rate 11 mm/Hr 0-14 Timothy (Anti-Nuclear AB) Screen Negative Negative CBC With Manual Diff 08/23/2012 White Blood Count 5.0 10^3/uL 4.8-10.8 Red Blood Count 4.66 10^6/uL 4.0-5.4 Hemoglobin 13.1 g/dL 12.0-16.0 Hematocrit 40 % 35-47 Mean Corpuscular Volume 86 fL 80-97 Mean Corpuscular Hemoglobin 28 pg 27-31 Mean Corpuscular HGB Conc 33 g/dL 31-36 Red Cell Distribution Width 13 % 10.5-15 Platelet Count 350 10^3/uL 150-450 Mean Platelet Volume 8 um3 7.4-10.4 Abs Neutrophils 2.7 10^3/uL 1.5-7.7 Abs Lymphocytes 1.7 10^3/uL 1.0-4.8 Abs Monocytes 0.4 10^3/uL 0-0.8 Abs Eosinophils 0.1 10^3/uL 0-0.6 Abs Basophils 0.1 10^3/uL 0-0.2 Abs Nucleated RBC 0 10^3/uL Neutrophil % 51 % 38-83 Lymphocytes % 41 % 25-47 Monocytes % 4 % 0-13 Eosinophils % 4 % 0-6 RBC Morphology Normal Normal Comp Metabolic Panel 08/23/2012 Sodium 135 mmol/L 133-145 Potassium 4.0 mmol/L 3.5-5.0 Chloride 103 mmol/L 101-111 Co2 Carbon Dioxide 24.0 mmol/L 22-32 Anion Gap 8.0 mmol/L 2-11 Glucose 91 mg/dL 70-100 Blood Urea Nitrogen 9 mg/dL 6-24 Creatinine 0.80 mg/dL 0.50-1.40 BUN/Creatinine Ratio 11.3 8-20 Calcium 8.9 mg/dL 8.1-9.9 Total Protein 6.4 g/dL 6.2-8.1 Albumin 3.9 g/dL 3.6-5.4 Globulin 2.5 g/dL 2-4 Albumin/Globulin Ratio 1.6 1-3 Total Bilirubin 0.8 mg/dL 0.4-1.5 Alkaline Phosphatase 73 U/L 30-110 Alt 15 U/L 14-54 Ast 17 U/L 12-42 Egfr Non- 76.2 >60 Egfr 98.0 >60 48 Laboratory test 08/23/2012 C Reactive Protein < 0.5 mg/dL Less than 0.5 finding Erythrocyte Sed Rate 10 mm/Hr 0-14 Aicha Screen Negative Negative 49 Timothy (Anti-Nuclear AB) Screen Negative Negative Laboratory test finding 07/31/2012 C Reactive Protein 0.5 mg/dL Less than 0.5 Erythrocyte Sed Rate 10 mm/Hr 0-14 Comp Metabolic Panel 07/31/2012 Sodium 141 mmol/L 133-145 Potassium 4.0 mmol/L 3.5-5.0 Chloride 112 mmol/L High 101-111 Co2 Carbon Dioxide 25.0 mmol/L 22-32 Anion Gap 4.0 mmol/L 2-11 Glucose 93 mg/dL 70-100 Blood Urea Nitrogen 9 mg/dL 6-24 Creatinine 0.80 mg/dL 0.50-1.40 BUN/Creatinine Ratio 11.3 8-20 Calcium 9.0 mg/dL 8.1-9.9 Total Protein 6.2 g/dL 6.2-8.1 Albumin 3.5 g/dL Low 3.6-5.4 Globulin 2.7 g/dL 2-4 Albumin/Globulin Ratio 1.3 1-3 Total Bilirubin 0.7 mg/dL 0.4-1.5 Alkaline Phosphatase 54 U/L 30-110 Alt 14 U/L 14-54 Ast 16 U/L 12-42 Egfr Non- 76.2 >60 Egfr 98.0 >60 50 CBC With Manual Diff 07/31/2012 White Blood Count 5.7 10^3/uL 4.8-10.8 Red Blood Count 4.59 10^6/uL 4.0-5.4 Hemoglobin 13.4 g/dL 12.0-16.0 Hematocrit 40 % 35-47 Mean Corpuscular Volume 88 fL 80-97 Mean Corpuscular Hemoglobin 29 pg 27-31 Mean Corpuscular HGB Conc 33 g/dL 31-36 Red Cell Distribution Width 13 % 10.5-15 Platelet Count 303 10^3/uL 150-450 Mean Platelet Volume 7 um3 Low 7.4-10.4 Abs Neutrophils 3.6 10^3/uL 1.5-7.7 Abs Lymphocytes 1.3 10^3/uL 1.0-4.8 Abs Monocytes 0.6 10^3/uL 0-0.8 Abs Eosinophils 0.1 10^3/uL 0-0.6 Abs Basophils 0.1 10^3/uL 0-0.2 Abs Nucleated RBC 0 10^3/uL Neutrophil % 63 % 38-83 Band % 2 % 0-8 Lymphocytes % 24 % Low 25-47 Monocytes % 6 % 0-13 Eosinophils % 2 % 0-6 Basophil % 2 % 0-2 Reactive Lymph % 1 % 0-6 RBC Morphology Normal Normal Celiac Panel 06/06/2012 Immunoglobulin A 86 mg/dL 61 - 356 Tissue Transglutaminase IgA Ab <1.2 U/mL 51 Celiac Interpretation See Comment 52 Urinalysis 06/06/2012 Urine Color Yellow Urine Appearance Turbid Urine Specific [place] 1.020 1.010-1.030 Urine Esterase Negative Negative Urine Nitrate Negative Negative Urine Urobilinogen Negative E.U./dL Negative Urine Protein Negative mg/dL Negative Urine pH 8.0 5-9 Urine Blood Negative Negative Urine Ketones Negative mg/dL Negative Urine Bilirubin Negative Negative Urine Glucose Negative mg/dL Negative CBC With Manual Diff 05/29/2012 White Blood Count 5.5 10^3/uL 4.8-10.8 Red Blood Count 4.59 10^6/uL 4.0-5.4 Hemoglobin 13.5 g/dL 12.0-16.0 Hematocrit 41 % 35-47 Mean Corpuscular Volume 88 fL 80-97 Mean Corpuscular Hemoglobin 30 pg 27-31 Mean Corpuscular HGB Conc 33 g/dL 31-36 Red Cell Distribution Width 13 % 10.5-15 Platelet Count 305 10^3/uL 150-450 Mean Platelet Volume 8 um3 7.4-10.4 Abs Neutrophils 3.4 10^3/uL 1.5-7.7 Abs Lymphocytes 1.5 10^3/uL 1.0-4.8 Abs Monocytes 0.4 10^3/uL 0-0.8 Abs Eosinophils 0.1 10^3/uL 0-0.6 Abs Basophils 0.1 10^3/uL 0-0.2 Abs Nucleated RBC 0 10^3/uL Neutrophil % 58 % 38-83 Lymphocytes % 37 % 25-47 Monocytes % 4 % 0-13 Reactive Lymph % 1 % 0-6 RBC Morphology Normal Normal Laboratory test finding 05/29/2012 Erythrocyte Sed Rate 10 mm/Hr 0-14 C Reactive Protein < 0.5 mg/dL Less than 0.5 Timothy (Anti-Nuclear AB) Screen Reflexed to FA Negative 53 Aicha Screen Negative Negative 54 Timothy Hep-2 05/29/2012 Timothy Pattern Homogeneous Negative Timothy Titer 1:1280 <1:80 Timothy Reviewed By MD Micheal Marina <SEE NOTE> 55 Laboratory test finding 11/30/2011 Erythrocyte Sed Rate 12 MM/HR 0-14 C Reactive Protein 0.7 mg/dL High Less Than 0.5 Anti Nuclear Antibody Screen Negative Negative 56 CBC With Manual Diff 11/30/2011 White Blood Count 4.7 10^3/uL Low 4.8- 10.8 Red Blood Count 4.13 10^6/uL 4.0-5.4 Hemoglobin 12.9 g/dL 12.0-16.0 Hematocrit 36 % 35-47 Mean Corpuscular Volume 88 fL 80-97 Mean Corpuscular Hemoglobin 31 pg 27-31 Mean Corpuscular HGB Conc 35 g/dL 31-36 Red Cell Distribution Width 13 % 10.5-15 Platelet Count 311 10^3/uL 150-450 Mean Platelet Volume 7 um3 Low 7.4-10.4 Abs Neutrophils 2.7 10^3/uL 1.5-7.7 Abs Lymphocytes 1.5 10^3/uL 1.0-4.8 Abs Monocytes 0.3 10^3/uL 0-0.8 Abs Eosinophils 0.1 10^3/uL 0-0.6 Abs Basophils 0 10^3/uL 0-0.2 Abs Nucleated RBC 0 10^3/uL Neutrophil % 61.0 % 38-83 Band % 1.0 % 0-8 Lymphocytes % 22.0 % Low 25-47 Monocytes % 7.0 % 0-13 Eosinophils % 2.0 % 0-6 Basophil % 0 % 0-2 Reactive Lymph % 7.0 % High 0-6 Metamyelocytes % 0 % 0-2 Myelocytes % 0 % 0-1 Promyelocytes % 0 % Blast % 0 % RBC Morphology Normal Normal Ssa/SSB Abs Igg 11/30/2011 SS-A/Ro Antibody <0.2 U 57 SS-B/La Antibody 0.4 U 58 Neutrophil Cytoplasmic AB 11/30/2011 C-Anca Negative Negative P Anca Negative Negative Anca Reviewed By MD Stevenson Cerna <SEE NOTE> 59 Neutrophil Cytoplasmic AB 05/30/2011 C-Anca NEGATIVE P-Anca Final RPT NEGATIVE Nca Rev By MD MICHEAL MARINA <SEE NOTE> Negative 60 Timothy (Antinuclear 05/30/2011 Antinuclear AB NEGATIVE Negative Antibodies) Dna Autoab Single-Stranded 05/30/2011 SS-A/Ro Autoantibodies <0.2 U ( ) 61 SS-B/La Autoantibodies 0.3 U () 62 Laboratory test finding 05/30/2011 Erythrocyte Sed Rate 15 MM/HR 0-15 CBC With Manual Diff 05/30/2011 White Blood Count 4.5 CUMM Low 4.8-10.8 Red Cell Count 4.21 CUMM 4.2-5.4 Hemoglobin 13.0 g/dL 12.0-16.0 Hematocrit 37 % 35-47 Mean Corpuscular Volume 87 um3 79-97 Mean Corpuscular Hemoglob 31 pg 27-31 Mean Corpuscular HGB Cone 36 g/dL 32-36 Redcell Distribution WDTH 13 % 10.5-15 Platelet Count 332 CUMM 150-450 Mean Platelet Volume 7.8 um3 7.4-10.4 Polysegmented Neutrophil 71 % 38-83 Lymphocyte 25 % 25-47 Monocyte 3 % 0-13 Atypical Lymph 1 % 0-6 Absolute Neutrophil Count 3.10 RBC Morphology NORMAL Laboratory test 05/30/2011 C Reactive Protein < 0.5 mg/dL Less Than 0.5 finding 1 Because ethnic data is not always readily available, this report includes an eGFR for both -Americans and non- Americans. The National Kidney Disease Education Program (NKDEP) does not endorse the use of the MDRD equation for patients that are not between the ages of 18 and 70, are , have extremes of body size, muscle mass, or nutritional status, or are non- or non-. According to the National Kidney Foundation, irrespective of diagnosis, the stage of the disease is based on the level of kidney function: Stage Description GFR(mL/min/1.73 m(2)) 1 Kidney damage with normal or decreased GFR 90 2 Kidney damage with mild decrease in GFR 60-89 3 Moderate decrease in GFR 30-59 4 Severe decrease in GFR 15-29 5 Kidney failure <15 (or dialysis) 2 Acute inflammation: >10.00 3 Because ethnic data is not always readily available, this report includes an eGFR for both -Americans and non- Americans. The National Kidney Disease Education Program (NKDEP) does not endorse the use of the MDRD equation for patients that are not between the ages of 18 and 70, are , have extremes of body size, muscle mass, or nutritional status, or are non- or non-. According to the National Kidney Foundation, irrespective of diagnosis, the stage of the disease is based on the level of kidney function: Stage Description GFR(mL/min/1.73 m(2)) 1 Kidney damage with normal or decreased GFR 90 2 Kidney damage with mild decrease in GFR 60-89 3 Moderate decrease in GFR 30-59 4 Severe decrease in GFR 15-29 5 Kidney failure <15 (or dialysis) 4 Acute inflammation: >10.00 5 Standing orders q6 weeks or as directed 6 REFERENCE VALUE <1:80 (Negative) 7 Dense Fine Speckled Test Performed by: [place] [address] 8 Because ethnic data is not always readily available, this report includes an eGFR for both -Americans and non- Americans. The National Kidney Disease Education Program (NKDEP) does not endorse the use of the MDRD equation for patients that are not between the ages of 18 and 70, are , have extremes of body size, muscle mass, or nutritional status, or are non- or non-. According to the National Kidney Foundation, irrespective of diagnosis, the stage of the disease is based on the level of kidney function: Stage Description GFR(mL/min/1.73 m(2)) 1 Kidney damage with normal or decreased GFR 90 2 Kidney damage with mild decrease in GFR 60-89 3 Moderate decrease in GFR 30-59 4 Severe decrease in GFR 15-29 5 Kidney failure <15 (or dialysis) 9 Acute inflammation: >10.00 10 REFERENCE VALUE <1:80 (Negative) 11 Dense Fine Speckled Test Performed by: [place] [id number] 12 Because ethnic data is not always readily available, this report includes an eGFR for both -Americans and non- Americans. The National Kidney Disease Education Program (NKDEP) does not endorse the use of the MDRD equation for patients that are not between the ages of 18 and 70, are , have extremes of body size, muscle mass, or nutritional status, or are non- or non-. According to the National Kidney Foundation, irrespective of diagnosis, the stage of the disease is based on the level of kidney function: Stage Description GFR(mL/min/1.73 m(2)) 1 Kidney damage with normal or decreased GFR 90 2 Kidney damage with mild decrease in GFR 60-89 3 Moderate decrease in GFR 30-59 4 Severe decrease in GFR 15-29 5 Kidney failure <15 (or dialysis) 13 Unable to report test result due to hemolysis. 14 Unable to report test result due to hemolysis. 15 Acute inflammation: >10.00 16 REFERENCE VALUE <1.0 (Negative) 17 REFERENCE VALUE <1.0 (Negative) 18 REFERENCE VALUE <1.0 (Negative) 19 REFERENCE VALUE <1.0 (Negative) 20 REFERENCE VALUE <1.0 (Negative) 21 REFERENCE VALUE <1.0 (Negative) Test Performed by: [facility] - [address] [address] 22 *Ascorbic acid is present which may interfere with detection of blood. 23 SEE RESULT BELOW Name: JAVIER ABDUL : [address]: Paxton Huitron NP Acct: [id number] Unit: [id number] AGE: 51 Location: LAB Re07/06/16 SEX: F Status: REG REF SPEC: [id number] WILDER: 07/06/16-[address]: Paxton Huitron NP REQ: [id number] RECD: 07/06/16 STATUS: COMP _ SOURCE: URINE SPDESC: ORDERED: Urine Culture Procedure Result Reported Site Urine Culture Final 07/07/16- 1748 ML Organism 1 STREP GROUP B [place] Count 10-25,000 (Moderate) CFU/ML Organism 2 NORMAL RAPHAEL [place] Count 25-50,000 (Moderate) CFU/ML Susceptibility testing of penicillins and other B-lactams approved by FDA for treatment of Streptococcus pyogenes (Group A Strep) and Streptococcus agalactiae (Group B Strep) is not necessary for clinical purposes and need not be done routinely, since as with vancomycin, resistant strains have not been recognized. (CLSI G207-M07;p.66) Positive isolates will be saved for one week. Please call the Microbiology Laboratory if further susceptibility testing is needed. * ML - MAIN LAB ([facility]) . END OF REPORT * ML=Testing performed at Main Lab DEPARTMENT OF PATHOLOGY, [address] [place] [address] Micheal Bangura M.D. Director [facility] # [id number] 24 Because ethnic data is not always readily available, this report includes an eGFR for both -Americans and non- Americans. The National Kidney Disease Education Program (NKDEP) does not endorse the use of the MDRD equation for patients that are not between the ages of 18 and 70, are , have extremes of body size, muscle mass, or nutritional status, or are non- or non-. According to the National Kidney Foundation, irrespective of diagnosis, the stage of the disease is based on the level of kidney function: Stage Description GFR(mL/min/1.73 m(2)) 1 Kidney damage with normal or decreased GFR 90 2 Kidney damage with mild decrease in GFR 60-89 3 Moderate decrease in GFR 30-59 4 Severe decrease in GFR 15-29 5 Kidney failure <15 (or dialysis) 25 Acute inflammation: >10.00 26 Test Performed by: [address] [address] [employer] Carpenter: Jamarcus Madsen II, M.D., Ph.D. 27 Because ethnic data is not always readily available, this report includes an eGFR for both -Americans and non- Americans. The National Kidney Disease Education Program (NKDEP) does not endorse the use of the MDRD equation for patients that are not between the ages of 18 and 70, are , have extremes of body size, muscle mass, or nutritional status, or are non- or non-. According to the National Kidney Foundation, irrespective of diagnosis, the stage of the disease is based on the level of kidney function: Stage Description GFR(mL/min/1.73 m(2)) 1 Kidney damage with normal or decreased GFR 90 2 Kidney damage with mild decrease in GFR 60-89 3 Moderate decrease in GFR 30-59 4 Severe decrease in GFR 15-29 5 Kidney failure <15 (or dialysis) 28 Acute inflammation: >10.00 29 REFERENCE VALUE <=1.0 (Negative) Test Performed by: [place] [address] Commercial Carpenter: Jamarcus Madsen II, M.D., Ph.D. 30 Because ethnic data is not always readily available, this report includes an eGFR for both -Americans and non- Americans. The National Kidney Disease Education Program (NKDEP) does not endorse the use of the MDRD equation for patients that are not between the ages of 18 and 70, are , have extremes of body size, muscle mass, or nutritional status, or are non- or non-. According to the National Kidney Foundation, irrespective of diagnosis, the stage of the disease is based on the level of kidney function: Stage Description GFR(mL/min/1.73 m(2)) 1 Kidney damage with normal or decreased GFR 90 2 Kidney damage with mild decrease in GFR 60-89 3 Moderate decrease in GFR 30-59 4 Severe decrease in GFR 15-29 5 Kidney failure <15 (or dialysis) 31 Acute inflammation: >10.00 32 *Ascorbic acid is present which may interfere with detection of blood. 33 SEE RESULT BELOW Name: JAVIER ABDUL Asad : [address]: Paxton Huitron NP Acct: [id number] Unit: [id number] AGE: 50 Location: LAB Re02/25/15 SEX: F Status: REG REF SPEC: [id number] WILDER: 02/25/15-[address]: Paxton Huitron NP REQ: [id number] RECD: 02/25/15 STATUS: COMP _ SOURCE: URINE SPDESC: ORDERED: Urine Culture Procedure Result Reported Site Urine Culture Final 02/27/15- 08 ML Organism 1 ESCHERICHIA COLI [place] Count 75-100,000 (Many) CFU/ML Organism 2 NORMAL RAPHAEL [place] Count 10-25,000 (Moderate) CFU/ML 1. ESCHERICHIA COLI M.I.C. RX --------- ------ Ampicillin <=2 S Cefazolin <=4 S Cefepime <=1 S Ceftriaxone <=1 S Ciprofloxacin <=0.25 S Gentamicin <=1 S Levofloxacin <=0.12 S Meropenem <=0.25 S Nitrofurantoin <=16 S Tetracycline <=1 S Pipercillin/Tazobactam <=4 S Trimethoprim/Sulfamethoxazole <=20 S Amoxicillin/Clavulanic Acid <=2 S Aztreonam <=1 S Contact the Microbiology Department for any additional antibiotic reporting. * ML - MAIN LAB ([facility]) . END OF REPORT * ML=Testing performed at Main Lab DEPARTMENT OF PATHOLOGY, [address] [place] [address] Micheal Bangura M.D. Director [facility] # [id number] Because ethnic data is not always readily available, this report includes an eGFR for both -Americans and non- Americans. The National Kidney Disease Education Program (NKDEP) does not endorse the use of the MDRD equation for patients that are not between the ages of 18 and 70, are , have extremes of body size, muscle mass, or nutritional status, or are non- or non-. According to the National Kidney Foundation, irrespective of diagnosis, the stage of the disease is based on the level of kidney function: Stage Description GFR(mL/min/1.73 m(2)) 1 Kidney damage with normal or decreased GFR 90 2 Kidney damage with mild decrease in GFR 60-89 3 Moderate decrease in GFR 30-59 4 Severe decrease in GFR 15-29 5 Kidney failure <15 (or dialysis) 35 Acute inflammation: >10.00 36 Because ethnic data is not always readily available, this report includes an eGFR for both -Americans and non- Americans. The National Kidney Disease Education Program (NKDEP) does not endorse the use of the MDRD equation for patients that are not between the ages of 18 and 70, are , have extremes of body size, muscle mass, or nutritional status, or are non- or non-. According to the National Kidney Foundation, irrespective of diagnosis, the stage of the disease is based on the level of kidney function: Stage Description GFR(mL/min/1.73 m(2)) 1 Kidney damage with normal or decreased GFR 90 2 Kidney damage with mild decrease in GFR 60-89 3 Moderate decrease in GFR 30-59 4 Severe decrease in GFR 15-29 5 Kidney failure <15 (or dialysis) 37 Acute inflammation: >10.00 38 Because ethnic data is not always readily available, this report includes an eGFR for both -Americans and non- Americans. The National Kidney Disease Education Program (NKDEP) does not endorse the use of the MDRD equation for patients that are not between the ages of 18 and 70, are , have extremes of body size, muscle mass, or nutritional status, or are non- or non-. According to the National Kidney Foundation, irrespective of diagnosis, the stage of the disease is based on the level of kidney function: Stage Description GFR(mL/min/1.73 m(2)) 1 Kidney damage with normal or decreased GFR 90 2 Kidney damage with mild decrease in GFR 60-89 3 Moderate decrease in GFR 30-59 4 Severe decrease in GFR 15-29 5 Kidney failure <15 (or dialysis) 39 Acute inflammation: >10.00 40 Because ethnic data is not always readily available, this report includes an eGFR for both -Americans and non- Americans. The National Kidney Disease Education Program (NKDEP) does not endorse the use of the MDRD equation for patients that are not between the ages of 18 and 70, are , have extremes of body size, muscle mass, or nutritional status, or are non- or non-. According to the National Kidney Foundation, irrespective of diagnosis, the stage of the disease is based on the level of kidney function: Stage Description GFR(mL/min/1.73 m(2)) 1 Kidney damage with normal or decreased GFR 90 2 Kidney damage with mild decrease in GFR 60-89 3 Moderate decrease in GFR 30-59 4 Severe decrease in GFR 15-29 5 Kidney failure <15 (or dialysis) 41 Acute inflammation: >10.00 42 Because ethnic data is not always readily available, this report includes an eGFR for both -Americans and non- Americans. The National Kidney Disease Education Program (NKDEP) does not endorse the use of the MDRD equation for patients that are not between the ages of 18 and 70, are , have extremes of body size, muscle mass, or nutritional status, or are non- or non-. According to the National Kidney Foundation, irrespective of diagnosis, the stage of the disease is based on the level of kidney function: Stage Description GFR(mL/min/1.73 m(2)) 1 Kidney damage with normal or decreased GFR 90 2 Kidney damage with mild decrease in GFR 60-89 3 Moderate decrease in GFR 30-59 4 Severe decrease in GFR 15-29 5 Kidney failure <15 (or dialysis) 43 Acute inflammation: >10.00 44 Acute inflammation: >10.00 45 Because ethnic data is not always readily available, this report includes an eGFR for both -Americans and non- Americans. The National Kidney Disease Education Program (NKDEP) does not endorse the use of the MDRD equation for patients that are not between the ages of 18 and 70, are , have extremes of body size, muscle mass, or nutritional status, or are non- or non-. According to the National Kidney Foundation, irrespective of diagnosis, the stage of the disease is based on the level of kidney function: Stage Description GFR(mL/min/1.73 m(2)) 1 Kidney damage with normal or decreased GFR 90 2 Kidney damage with mild decrease in GFR 60-89 3 Moderate decrease in GFR 30-59 4 Severe decrease in GFR 15-29 5 Kidney failure <15 (or dialysis) 46 Micheal Bangura 47 Because ethnic data is not always readily available, this report includes an eGFR for both -Americans and non- Americans. The National Kidney Disease Education Program (NKDEP) does not endorse the use of the MDRD equation for patients that are not between the ages of 18 and 70, are , have extremes of body size, muscle mass, or nutritional status, or are non- or non-. According to the National Kidney Foundation, irrespective of diagnosis, the stage of the disease is based on the level of kidney function: Stage Description GFR(mL/min/1.73 m(2)) 1 Kidney damage with normal or decreased GFR 90 2 Kidney damage with mild decrease in GFR 60-89 3 Moderate decrease in GFR 30-59 4 Severe decrease in GFR 15-29 5 Kidney failure <15 (or dialysis) 48 Because ethnic data is not always readily available, this report includes an eGFR for both -Americans and non- Americans. The National Kidney Disease Education Program (NKDEP) does not endorse the use of the MDRD equation for patients that are not between the ages of 18 and 70, are , have extremes of body size, muscle mass, or nutritional status, or are non- or non-. According to the National Kidney Foundation, irrespective of diagnosis, the stage of the disease is based on the level of kidney function: Stage Description GFR(mL/min/1.73 m(2)) 1 Kidney damage with normal or decreased GFR 90 2 Kidney damage with mild decrease in GFR 60-89 3 Moderate decrease in GFR 30-59 4 Severe decrease in GFR 15-29 5 Kidney failure <15 (or dialysis) 49 The above AICHA screen is designed for the detection of antibodies to extractable nuclear antigen (AICHA) in human serum. It is a combination test for the detection of antibodies to SHIPPING RECEIVING MANAGER, Sm, SS-A (Ro), and SS-B (La) nuclear antigens. 50 Because ethnic data is not always readily available, this report includes an eGFR for both -Americans and non- Americans. The National Kidney Disease Education Program (NKDEP) does not endorse the use of the MDRD equation for patients that are not between the ages of 18 and 70, are , have extremes of body size, muscle mass, or nutritional status, or are non- or non-. According to the National Kidney Foundation, irrespective of diagnosis, the stage of the disease is based on the level of kidney function: Stage Description GFR(mL/min/1.73 m(2)) 1 Kidney damage with normal or decreased GFR 90 2 Kidney damage with mild decrease in GFR 60-89 3 Moderate decrease in GFR 30-59 4 Severe decrease in GFR 15-29 5 Kidney failure <15 (or dialysis) 51 -- REFERENCE VALUE -- <4.0 (Negative) Test Performed by: [address] [id number] [employer] Carpenter: Dawson Paul III, M.D. 52 Negative serology. Celiac disease unlikely. However, approximately 10% of patients with celiac disease are seronegative. Also, patients who are already adhering to a gluten-free diet may be seronegative. If celiac disease is highly clinically suspected, consider HLA-DQ typing. Test Performed by: [address] [address] [employer] Carpenter: Dawson Paul III, M.D. 53 @Sample frozen by [id number] at 2119 on 05/29/12. @05/31/12 1350: TIMOTHY Hep-2 added. RFLXG=PIPER. 54 The above AICHA screen is designed for the detection of antibodies to extractable nuclear antigen (AICHA) in human serum. It is a combination test for the detection of antibodies to SHIPPING RECEIVING MANAGER, Sm, SS-A (Ro), and SS-B (La) nuclear antigens. 55 Micheal Bangura 56 @Sample frozen by [id number] at 1633 on 11/30/11. 57 -- REFERENCE VALUE -- <1.0 (Negative) R 58 -- REFERENCE VALUE -- <1.0 (Negative) Test Performed by: [address] [address] [employer] Carpenter: Dawson Paul III, M.D. R 59 [facility] 60 MICHEAL WILLIAM 61 -- REFERENCE VALUE -- <1.0 (Negative) 62 -- REFERENCE VALUE -- <1.0 (Negative) Test Performed by: [facility] Lab Med and Pathology [address] [place] [id number] [employer]: Dawson Paul III, M.D. Procedures Date CPT Code Description Status 11/16/2016 Mammogram Completed 11/22/2015 Mammogram Completed Encounters Type Date Location Provider CPT E/M Dx Office Visit 11/27/2016 [facility] H[facility]ron, MARCELA 78347 R76.8 10:30a Of [facility]el [facility] H90.12 M32.9 I73.00 Z79.899 Office Visit 09/15/2016 3:00p [facility] Guillermo 79129 R76.8 Jewel Gauger H90.12 Z79.899 Office Visit 07/18/2016 4:00p [facility] Of [place]A Guillermo 56475 R76.8 Jewel Gauger M25.569 Z79.899 Office Visit 01/11/2016 4:30p [facility] [place] Huitron, MARCELA 30449 R76.8 Jewel Gauger H90.12 R31.9 Z79.899 Office Visit 07/07/2015 3:00p [facility] [place] 25288 R76.8 Jewel Gauger H90.12 Z79.899 Office Visit 03/03/2015 3:00p [facility] [place] Gu[facility]ermo 87317 R76.8 Jewel Gauger H90.12 M32.9 J01.90 N39.0 Z79.899 Office Visit 12/01/2014 3:00p [facility] [place]A Guillermo 52090 R76.8 Jewel Gauger H90.12 M32.9 J32.9 Z79.899 Z23 Office Visit 08/31/2014 3:00p [facility] Gu[facility]ermo 15495 710.9 Jewel Gauger 795.79 473.8 V58.69 782.1 Office Visit 08/09/2014 1:48p [facility],janette Harrington, 79930 708.9 Hospitalists Stella 710.0 401.9 Office Visit 08/08/2014 1:48p [facility], Kyra Harrington, 87003 708.9 Hospitalists Stella 710.0 401.9 Office Visit 05/14/2014 10:00a [facility] Leonardo Willoughby M.D. 10969 710.9 Of [facility] 338.4 795.79 V58.69 473.8 Office Visit 02/20/2014 4:00p [facility] Of MARCELA Guillermo 10584 710.9 [facility] 795.79 V58.69 727.05 Office Visit 08/18/2013 8:30a [facility] Of Christinayesenia Tomy, FNP 97241 710.9 [facility] 795.79 V58.69 Office Visit 02/06/2013 9:00a [facility] Services MARCELA Guillermo 75453 795.79 Of [facility] V58.69 Office Visit 08/29/2012 1:40p [facility] Of MARCELA Guillermo 78543 710.9 [facility] 795.79 V58.69 Office Visit 06/06/2012 2:20p [facility] Of MARCELA Guillermo 85386 710.9 [facility] 795.79 V58.69 719.44 Office Visit 12/07/2011 4:00p [facility] Leonardo Willoughby M.D. 20262 710.9 Of [facility] V58.69 Office Visit 06/05/2011 4:00p [facility] Leonardo Willuoghby M.D. 01461 710.9 Of [facility] Office Visit 12/06/2010 4:00p [facility] Leonardo Willoughby M.D. 68294 710.9 Of [facility] V58.69 Office Visit 06/07/2010 4:00p [facility] Leonardo Willoughby M.D. 53389 710.9 Of [facility] V58.69 Plan of Care Future Appointment(s):05/22/2017 3:30 pm - MARCELA Guillermo at [facility]03/20/2017 - DANNY GuillermoPR05 CoughNew Medication: Guaifenesin-Codeine 100-10 mg/5MLComments:Topical TX: honey, pavel, licorice, cough drops or syrups are locally soothing. Their use is not supported by scientific evidence. It is important that you keep well hydrated. I recommend topical treatments: pavel, licorice, honey, cough drops I am sending in an RX for Guaifenesin with codeine. Take it in the evenings.Follow up:2 hfjjnV77.90 Acute sinusitis, hwxzdlfvkowZ96.8 Other specified abnormal immunological findings in serumComments:Will stop MTX for now.Will reevaluate at your follow u visit.You need to recover from infection prior to hflznisQ87.12 Condctv hear loss, uni, left ear, w unrestr hear cntra sideM32.9 Systemic lupus erythematosus , uvjejduooplQ82.899 Other senior living (current) drug therapy
--- NOTE | 2017-03-23 16:35 | UC ---
Skin Complaint HPI - HPI Summary HPI Summary: rash on lower leg that developed after a viral illness - History of Current Complaint Chief Complaint: UCSkin Time Seen by Provider: 03/23/17 16:34 Stated Complaint: SKIN COMPLAINT Hx Obtained From: Patient Hx Last Menstrual Period: 03/08/17 ?: No Onset/Duration: Sudden Onset, Lasting Days Timing: Constant Onset Severity: Mild Current Severity: Mild Pain Intensity: 3 Pain Scale Used: 0-10 Numeric Location: Discrete Character: Redness, Raised, Painful Aggravating Factor(s): Nothing Associated Signs & Symptoms: Positive: Negative - Allergy/Home Medications Allergies/Adverse Reactions: Allergies Allergy/AdvReac Type Severity Reaction Status Date / Time Cephalosporins Allergy Hives Verified 03/23/17 14:16 ibuprofen Allergy Hives Verified 03/23/17 14:18 Penicillins Allergy Hives Verified 03/23/17 14:16 Sulfa (Sulfonamide Allergy Hives Verified 03/23/17 14:17 Antibiotics) peanuts Allergy anaph Uncoded 03/23/17 14:18 Review of Systems Constitutional: Negative Skin: Other - tender papular rash on legs Eyes: Negative ENT: Negative Respiratory: Negative Cardiovascular: Negative Gastrointestinal: Negative Genitourinary: Negative Motor: Negative Neurovascular: Negative Musculoskeletal: Negative Neurological: Negative Psychological: Negative Is Patient Immunocompromised?: No All Other Systems Reviewed And Are Negative: Yes PMH/Surg Hx/FS Hx/Imm Hx Previously Healthy: No Cardiovascular History: Hypertension Other History Of: Negative For: Anticoagulant Therapy - Surgical History Surgical History: Yes Surgery Procedure, Year, and Place: sinus surgery in 2006. tonsillectomy. hematoma removed from head at 3 months old - Family History Known Family History: Positive: Diabetes - Social History Occupation: Employed Full-time Lives: With Family Alcohol Use: None Substance Use Type: None Smoking Status (MU): Never Smoked Tobacco - Immunization History Most Recent Influenza Vaccination: 10/2013 Most Recent Tetanus Shot: yes but unknown date, within last 4 years Most Recent Pneumonia Vaccination: yes, but unknown date Physical Exam Triage Information Reviewed: Yes Appearance: Well-Appearing, No Pain Distress, Well-Nourished Vital Signs: Initial Vital Signs Temp 98 F 03/23/17 14:20 Pulse 93 03/23/17 14:20 Resp 16 03/23/17 14:20 BP 130/79 03/23/17 14:20 Pulse Ox 100 03/23/17 14:20 Vital Signs Reviewed: Yes Eye Exam: Normal Eyes: Positive: Conjunctiva Clear ENT Exam: Normal ENT: Positive: Normal ENT inspection, Pharynx normal, TMs normal, Uvula midline. Negative: Tonsillar swelling, Tonsillar exudate, Trismus, Muffled voice, Hoarse voice, Sinus tenderness Dental Exam: Normal Neck exam: Normal Neck: Positive: Supple, Nontender, No Lymphadenopathy Respiratory Exam: Normal Respiratory: Positive: Chest non-tender, Lungs clear, Normal breath sounds, No respiratory distress, No accessory muscle use Cardiovascular Exam: Normal Cardiovascular: Positive: RRR, No Murmur, Pulses Normal, Brisk Capillary Refill Musculoskeletal Exam: Normal Musculoskeletal: Positive: Strength Intact, ROM Intact, No Edema Neurological Exam: Normal Neurological: Positive: Alert, Muscle Tone Normal Psychological Exam: Normal Psychological: Positive: Normal Response To Family Skin Exam: Other Skin: Positive: Other - tender eythemix papules Course/Dx - Course Course Of Treatment: tylenol, ibuprofen follow with Dr. Sidhu - Diagnoses Provider Diagnoses: Erythema Nodosum Discharge - Discharge Plan Condition: Stable Disposition: HOME Patient Education Materials: Viral Syndrome (ED), Hypertension (ED), Safe Use of NSAIDs (ED) Referrals: Mateusz Sidhu MD [Medical Doctor] - 3 Days Reuben Riggs NP [Primary Care Provider] - 2 Weeks Additional Instructions: Your rash is most consistent with erythema nordosum. There is no specific treatment while it is mild. THis is a self limiting response likely to your recent illness-NSAIDS can be helpful
[2017-03-23 17:11] VITALS: BP 147/75
== END 2017-03-23 17:23 | disposition home or self-care (01) ==
LOC: UCEAST 14:10
DX: L52 Erythema nodosum (principal); I10 Essential (primary) hypertension; Z88.0 Allergy status to penicillin; Z88.2 Allergy status to sulfonamides; Z88.6 Allergy status to analgesic agent; Z88.1 Allergy status to other antibiotic agents; Z91.010 Allergy to peanuts
CPT/HCPCS: 81003; 87086; 87651; 99211; G0463

== ENCOUNTER → 2017-05-27 16:28 | Emergency (ER) | payer BC ==
[~2017-05-27 16:28] MED LIST: Famotidine IV* 10 MG/ML 2 ML (20 mg) IV ONE; Famotidine IV* 10 MG/ML 2 ML (20 mg) ONE; Famotidine TAB* 20 MG PO ONE; NS 0.9% 1000 ML* 1,000 ML IV ONE; diPHENhydraMINE IV* 50 MG/ML 1 ml VIAL (BENADRYL) IV ONE; diPHENhydraMINE IV* 50 MG/ML 1 ml VIAL (BENADRYL) ONE; methylPREDNISolone 125 MG* 2 ML VIAL IV ONE; methylPREDNISolone 125 MG* 2 ML VIAL ONE; predniSONE TAB* 20 MG PO ONE
--- NOTE | 2017-05-27 18:47 | ED ---
Cindy Johansen Thomas, scribed for Jamarcus Patel MD on 05/27/17 at 1700 . Allergic Reaction/Systemic - HPI Summary HPI Summary: The patient is a 52 year old female presenting with an allergic reaction that occurred 20 minutes after she took Moxyfloxacin. She complains of hives and shaking. She self-administered her Epi-Pen, which she keeps due to her allergy to nuts. She also took two Benadryl tablets at home prior to arrival. She was prescribed the Moxyfloxacin by her PMD due to a sinus infection that she has been dealing with the last two weeks. - History of Current Complaint Chief Complaint: EDAllergicReaction Hx Obtained From: Patient Hx Last Menstrual Period: 03/08/17 Onset/Duration: Sudden Onset, Started minutes ago, Still Present Timing: Constant Severity Currently: Moderate Pain Intensity: 0 Pain Scale Used: 0-10 Numeric Location: Diffuse - hives Aggravating Factor(s): Other - Moxyfloxacin Alleviating Factor(s): Epinephrine Associated Signs And Symptoms: Positive: Other: - Shaking, hives - Allergies/Home Medications Allergies/Adverse Reactions: Allergies Allergy/AdvReac Type Severity Reaction Status Date / Time Cephalosporins Allergy Hives Verified 03/23/17 14:16 ibuprofen Allergy Hives Verified 03/23/17 14:18 Penicillins Allergy Hives Verified 03/23/17 14:16 Sulfa (Sulfonamide Allergy Hives Verified 03/23/17 14:17 Antibiotics) peanuts Allergy anaph Uncoded 03/23/17 14:18 Home Medications: Home Medications Azelastine/Fluticasone TAI(NF [Dymista(NF)] 2 spray BOTH NARES DAILY 05/27/17 [ History Confirmed 05/27/17] Hydroxychloroquine TAB* [Plaquenil TAB*] 400 mg PO DAILY 05/27/17 [History Confirmed 05/27/17] Levalbuterol HFA INHALER* [Xopenex Hfa Inhaler*] 2 puff INH Q4H PRN 05/27/17 [ History Confirmed 05/27/17] LevoCETirizine TAB (NF) [Xyzal TAB (NF)] 5 mg PO DAILY 05/27/17 [History Confirmed 05/27/17] Linaclotide (NF) [Linzess (NF)] 290 mcg PO DAILY 05/27/17 [History Confirmed ] Lisinopril TAB* [Prinivil TAB*] 10 mg PO DAILY 05/27/17 [History Confirmed 05/27] Mometasone 220 MCG MDI * [Asmanex 220 MCG MDI *] 2 puff INH DAILY 05/27/17 [ History Confirmed 05/27/17] Montelukast Sodium TAB* [Singulair 10 MG TAB*] 10 mg PO DAILY 05/27/17 [History Confirmed 05/27/17] Moxifloxacin TAB(NF) [Avelox TAB (NF)] 400 mg PO DAILY 05/27/17 [History Confirmed 05/27/17] Omeprazole CAP* [Prilosec CAP* 20 MG] 20 mg PO DAILY 05/27/17 [History Confirmed 05/27/17] dilTIAZem HCl [Tiazac] 240 mg PO DAILY 05/27/17 [History Confirmed 05/27/17] PMH/Surg Hx/FS Hx/Imm Hx Endocrine/Hematology History: Denies: Hx Anticoagulant Therapy Cardiovascular History: Reports: Hx Hypertension - on meds Denies: Other Cardiovascular Problems/Disorders Respiratory History: Reports: Hx Asthma Denies: Hx Chronic Obstructive Pulmonary Disease (COPD) GI History: Reports: Hx Irritable Bowel Musculoskeletal History: Reports: Other Musculoskeletal History - Lupus - takes plaquenil - Surgical History Surgery Procedure, Year, and Place: sinus surgery in 2006. tonsillectomy. hematoma removed from head at 3 months old Hx Anesthesia Reactions: Yes - difficult to arrouse, n/v Infectious Disease History: No Infectious Disease History: Denies: Traveled Outside the [place] in Last 30 Days - Family History Known Family History: Positive: Diabetes - Social History Alcohol Use: None Substance Use Type: Reports: None Smoking Status (MU): Never Smoked Tobacco Review of Systems Negative: Fever Positive: Other - Hives Neurological: Other - Shaking All Other Systems Reviewed And Are Negative: Yes Physical Exam - Summary Physical Exam Summary: General: well-appearing, no pain distress Skin: She has diffuse hives Head: normal Eyes: EOMI, LARRY ENT: Her lower lip is a little swollen. Her oropharynx is open. Her voice is normal. Neck: supple, nontender Respiratory: CTA, breath sounds present Cardiovascular: RRR Abdomen: soft, nontender Bowel: present Musculoskeletal: normal, strength/ROM intact Neurological: normal, sensory/motor intact, A&O x3 Psychological: affect/mood appropriate Triage Information Reviewed: Yes Vital Signs On Initial Exam: Initial Vitals Temp Pulse Resp BP Pulse Ox 98.2 F 105 22 169/91 100 05/27/17 16:37 05/27/17 16:37 05/27/17 16:37 05/27/17 16:37 05/27/17 16:37 Vital Signs Reviewed: Yes Diagnostics - Vital Signs Vital Signs Temp Pulse Resp BP Pulse Ox 05/27/17 16:37 98.2 F 105 22 169/91 100 - Laboratory Lab Statement: Any lab studies that have been ordered have been reviewed, and results considered in the medical decision making process. Allergic Reaction Course/Dx - Course Course Of Treatment: IMPROVED IN ED. CRITICAL CARE TIME LESS THAN 30 MINUTES. F/U PMD/PROCESS DEVELOPMENT TECHNICIAN; RETURN IF WORSE. - Diagnoses Provider Diagnoses: Allergic reaction Discharge - Sign-Out/Discharge Documenting (check all that apply): Discharge - Discharge Plan Condition: Stable Disposition: HOME Prescriptions: Famotidine TAB* [Pepcid 20 MG TAB*] 20 mg PO BID PRN #6 tab PRN Reason: Allergy Symptoms predniSONE TAB* [Deltasone TAB*] 40 mg PO DAILY PRN #6 tab PRN Reason: Allergy Symptoms Patient Education Materials: General Allergic Reaction (ED) Referrals: Reuben Riggs, [employer]PER[employer] [Primary Care Provider] - Additional Instructions: FOLLOW UP WITH YOUR DOCTOR. TAKE BENADRYL 50MG EVERY 6 HOURS NEEDED. TAKE PEPCID 20MG TWICE A DAY NEEDED. TAKE PREDNISIONE DIRECTED NEEDED. RETURN TO THE EMERGENCY DEPARTMENT FOR ANY WORSENING OF YOUR CONDITION; DIFFICULTY SWALLOWING OR BREATHING OR QUESTIONS OR CONCERNS. - Billing Disposition and Condition Condition: STABLE Disposition: HOME The documentation as recorded by the Cindy hadn Thomas accurately reflects the service I personally performed and the decisions made by , Jamarcus Patel MD.
[2017-05-27 20:05] VITALS: BP 178/96
== END | disposition home or self-care (01) ==
LOC: ED 16:28
DX: L50.9 Urticaria, unspecified (principal); R25.1 Tremor, unspecified; T36.8X5A Adverse effect of other systemic antibiotics, initial encounter; Y92.9 Unspecified place or not applicable; I10 Essential (primary) hypertension; J45.909 Unspecified asthma, uncomplicated; M32.9 Systemic lupus erythematosus, unspecified; Z88.0 Allergy status to penicillin; Z88.2 Allergy status to sulfonamides; Z88.6 Allergy status to analgesic agent; Z88.1 Allergy status to other antibiotic agents; Z91.010 Allergy to peanuts
CPT/HCPCS: 96360; 96361; 99283; A9270-GY; J1200; J2930; J7512

== ENCOUNTER 2018-03-17 08:25 | Emergency (ER) | payer BC ==
--- NOTE | 2018-03-17 08:29 | UC ---
Respiratory Complaint HPI - HPI Summary HPI Summary: Patient is a 53 year old with significant past medical history consistent with chronic sinusitis, who present today to the urgent care with sinus symptoms that got worse recently. She was seen by her primary care doctor on 03/11, had flu swab that was negative and was treated with with Biaxin and Medrol Dose pack. She was doing better , but symptoms started to get worse again when she stopped her Medrol Dosepak on Sunday. She continues to have headaches, sore throat , cough and postnasal drip and fevers at home up to 101.6F She has history of chronic sinusitis for which she sees Dr. 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 She notices that her asthma has also flared up and had to take nebulizer. She denies any chest pain or shortness of breath Denies any abdominal pain , nausea or vomiting , diarrhea or constipation. She is currently on Biaxin day 6 and has about 1 more week left. She also uses a nasal spray. - History of Current Complaint Stated Complaint: URI Time Seen by Provider: 03/17/18 08:27 Hx Obtained From: Patient Hx Last Menstrual Period: 03/08/17 ?: No - Allergies/Home Medications Allergies/Adverse Reactions: Allergies Allergy/AdvReac Type Severity Reaction Status Date / Time Cephalosporins Allergy Hives Verified 03/17/18 08:30 ibuprofen Allergy Hives Verified 03/17/18 08:30 moxifloxacin [From Avelox] Allergy Anaphylatic Verified 03/17/18 08:30 Shock Penicillins Allergy Hives Verified 03/17/18 08:30 Sulfa (Sulfonamide Allergy Hives Verified 03/17/18 08:30 Antibiotics) peanuts Allergy anaph Uncoded 03/17/18 08:30 Home Medications: Home Medications Acetaminophen [Tylenol Extra Strength] 1,000 mg PO Q12HR PRN 03/17/18 [History Confirmed 03/17/18] Clarithromycin TAB* [Biaxin 500 MG TAB*] 500 mg PO BID 03/17/18 [History Confirmed 03/17/18] Levalbuterol 1.25MG/0.5ML NEB* [Xopenex 1.25 MG/0.5 ML NEB.KAUR*] 1.25 mg INH Q4H PRN 03/17/18 [History Confirmed 03/17/18] ValACYclovir (*) [Valtrex 500 mg (*)] 500 mg PO BID PRN 03/17/18 [History Confirmed 03/17/18] PMH/Surg Hx/FS Hx/Imm Hx - Additional Past Medical History Additional PMH: Chronic sinusitis Hypertension Asthma Lupus Previously Healthy: Yes Other History Of: Negative For: Anticoagulant Therapy - Surgical History Surgical History: Yes Surgery Procedure, Year, and Place: sinus surgery in 2005. tonsillectomy. hematoma removed from head at 3 months old. LAPROSCOPY - Family History Known Family History: Positive: Diabetes - Social History Alcohol Use: None Substance Use Type: None Smoking Status (MU): Never Smoked Tobacco - Immunization History Most Recent Influenza Vaccination: 10/2013 Most Recent Tetanus Shot: yes but unknown date, within last 4 years Most Recent Pneumonia Vaccination: yes, but unknown date Review of Systems All Other Systems Reviewed And Are Negative: Yes Constitutional: Positive: Fever Skin: Positive: Negative Eyes: Positive: Negative ENT: Positive: Sore Throat, Nasal Discharge, Sinus Congestion, Sinus Pain/ Tenderness Respiratory: Positive: Cough - Productive Cardiovascular: Positive: Negative Gastrointestinal: Positive: Negative Genitourinary: Positive: Negative Motor: Positive: Negative Neurovascular: Positive: Negative Musculoskeletal: Positive: Negative Neurological: Positive: Negative Psychological: Positive: Negative Is Patient Immunocompromised?: No Physical Exam - Summary Physical Exam Summary: Physical Exam: Const: Appears well. No signs of apparent distress present. Alert and oriented x 3. Musculo: Walks with a normal gait. Head/Face: Atraumatic, normocephalic on inspection. Eyes: EOMI and PERRLA in both eyes. Conjunctivae clear. No discharge noted ENT: Hearing normal, TM normal appearing bilaterally, non bulging , non erythematous . No tenderness on palpation / manipulation of Tragus. No mastoid tenderness. There is tenderness to palpation on maxillary and frontal sinus. minimla pharyngeal erythema , no exudates . Uvula is midline. There is tender anterior cervical lymphadenopathy noted. Respiratory: Respirations are unlabored. Lungs clear to auscultation bilaterally, no wheezing , rhonchi or rales noted . CVS: Regular rate and Rhythm, S1S2 normal , no murmurs identified. Extremities: Peripheral circulation is grossly normal. Pulses 2+ Abdomen : Soft non tender , nondistended , Bowel sounds present . No guarding , rebound tenderness or rigidity noted. Skin: No lesions or rash located on the upper extremities or on the lower extremities. Neuro: Cranial nerves II to XII intact, motor and sensory intact. DTR Intact bilaterally. Mood is normal. Affect is normal. Triage Information Reviewed: Yes Vital Signs Reviewed: Yes Respiratory Course/Dx - Course Course Of Treatment: During the visit today, we obtained flu test which was positive for Influenza A . We discussed the findings and plan to treat it with tamiflu. I will prescribe the medication to the pharmacy . Since she reports that clindamycin has worked for her sinus infections in the past I will prescribe that as well to the pharmacy but advised her to complete the course of Biaxin and switch to clindamycin if no improvement after completing tamiflu. We will keep her appointment with ENT physician in [place] as scheduled in the following week. Patient expressed understanding . - Differential Dx/Diagnosis Provider Diagnosis: Sinusitis, Influenza A Discharge - Sign-Out/Discharge Documenting (check all that apply): Patient Departure All imaging exams completed and their final reports reviewed: No Studies - Discharge Plan Condition: Stable Disposition: HOME Prescriptions: Clindamycin Cap(NF) [Clindamycin Cap 300 mg Cap(NF)] 300 mg PO Q6H 14 Days #56 cap Oseltamivir Phosphate [Tamiflu] 75 mg PO BID 5 Days #10 capsule Patient Education Materials: Influenza (DC) Forms: *Work Release Referrals: Reuben Riggs, [employer] [Primary Care Provider] - 1 Week Additional Instructions: Please start taking the medication as prescribed to the pharmacy . Please fill clindamycin only if your continued symptoms after you've completed Tamiflu. Work note: Work excuse for 5 days or until afebrile for 24 hours Please call the primary care doctor's of anybody exposed who is a child, elderly or immunosuppressed for preventative dose of Tamiflu. Follow up with your primary care doctor in1 week. Follow up with your ENT specialist, Dr. Ziegler in [place] as scheduled Patients blood pressure slightly high in Urgent care today , plan follow up with PCP for better control within 1 month Return to Urgent care / ER if symptoms get worse. - Billing Disposition and Condition Condition: STABLE Disposition: Home
[2018-03-17 08:43] VITALS: BP 151/89
[2018-03-17 08:54] LABS: Influenza A Molecular POSITIVE (Negative)
== END 2018-03-17 10:35 | disposition home or self-care (01) ==
LOC: UCEAST 08:25
DX: J10.89 Influenza due to other identified influenza virus with other manifestations (principal); J32.9 Chronic sinusitis, unspecified; I10 Essential (primary) hypertension; J45.909 Unspecified asthma, uncomplicated; Z79.899 Other long term (current) drug therapy; Z88.0 Allergy status to penicillin; Z88.2 Allergy status to sulfonamides; Z88.8 Allergy status to other drugs, medicaments and biological substances; Z88.1 Allergy status to other antibiotic agents; Z91.010 Allergy to peanuts
CPT/HCPCS: 99212; G0463